=== PATIENT | male | born 1960 | race Caucasian/White ===

== ENCOUNTER 2017-03-31 05:46 | Emergency (ER) | payer OTHER ==
[~2017-03-31] VITALS: Ht 154.9 cm; Wt 79.4 kg
[~2017-03-31 05:46] MED LIST: AMOCLA875 PO; METF500 PO; Naprosyn500 MG PO
[2017-03-31] MEDS ORDERED: LISI5 PO (06:02)
[2017-03-31] MEDS ORDERED: IBUP800 PO (07:33)
[2018-02-13] MEDS ORDERED: CEPH500 PO (12:25)
== END 2017-03-31 08:18 | disposition home or self-care (01) ==
LOC: ER 05:46
DX: S20.212A Contusion of left front wall of thorax, initial encounter (principal); E11.9 Type 2 diabetes mellitus without complications; F17.200 Nicotine dependence, unspecified, uncomplicated; Z79.84 Long term (current) use of oral hypoglycemic drugs; Z79.899 Other long term (current) drug therapy; W19.XXXA Unspecified fall, initial encounter
CPT/HCPCS: 71101; 99283

== ENCOUNTER 2018-03-01 19:46 | Emergency (ER) | payer OTHER ==
[~2018-03-01] VITALS: Ht 162.6 cm; Wt 81.7 kg
[~2018-03-01 19:46] MED LIST changes: +CEPH500 PO; +IBUP800 PO; +LISI5 PO
== END 2018-03-01 20:19 | disposition home or self-care (01) ==
LOC: ER 19:46
DX: M79.604 Pain in right leg (principal); M79.605 Pain in left leg; E11.9 Type 2 diabetes mellitus without complications; F17.210 Nicotine dependence, cigarettes, uncomplicated
CPT/HCPCS: 96372; 99283-25; J1885

== ENCOUNTER 2018-04-04 19:57 | Emergency (ER) | payer OTHER ==
[~2018-04-04] VITALS: Ht 162.6 cm; Wt 77.1 kg
[2018-04-04] MEDS ORDERED: ALBU90OI INH (23:32)
== END 2018-04-04 23:51 | disposition home or self-care (01) ==
LOC: ER 19:57
DX: J40 Bronchitis, not specified as acute or chronic (principal); E11.9 Type 2 diabetes mellitus without complications; F17.210 Nicotine dependence, cigarettes, uncomplicated
CPT/HCPCS: 71046; 94640; 99284-25

== ENCOUNTER 2019-08-01 21:53 | Emergency (ER) | payer OTHER ==
[~2019-08-01] VITALS: Ht 165.1 cm; Wt 72.6 kg
[~2019-08-01 21:53] MED LIST changes: +ALBU90OI INH
[2019-08-01] MEDS ORDERED: Flector1 EACH UD (22:08)
== END 2019-08-01 22:18 | disposition home or self-care (01) ==
LOC: ER 21:53
DX: M54.5 Low back pain (principal); E11.9 Type 2 diabetes mellitus without complications; F17.210 Nicotine dependence, cigarettes, uncomplicated
CPT/HCPCS: 96372; 99283-25; J1885

== ENCOUNTER 2019-08-07 23:54 | Emergency (ER) | payer OTHER ==
[~2019-08-07] VITALS: Ht 165.1 cm; Wt 79.4 kg
[~2019-08-07 23:54] MED LIST changes: +Flector1 EACH UD
== END 2019-08-08 01:55 | disposition home or self-care (01) ==
LOC: ER 23:54
DX: M54.5 Low back pain (principal); F10.10 Alcohol abuse, uncomplicated; E11.9 Type 2 diabetes mellitus without complications; F17.210 Nicotine dependence, cigarettes, uncomplicated
CPT/HCPCS: 96372; 99283; A9270; J1885

== ENCOUNTER 2019-12-15 18:39 | Emergency (ER) | payer OTHER ==
[~2019-12-15] VITALS: Ht 167.6 cm; Wt 74.8 kg
[~2019-12-15 18:39] MED LIST changes: +BASAGLAR K100 UNIT/1 SC; +Prinivil10 MG PO
== END 2019-12-15 20:00 | disposition home or self-care (01) ==
LOC: ER 18:39
DX: R01.1 Cardiac murmur, unspecified (principal); E11.9 Type 2 diabetes mellitus without complications; I10 Essential (primary) hypertension; F17.210 Nicotine dependence, cigarettes, uncomplicated; Z79.4 Long term (current) use of insulin
CPT/HCPCS: 99283

== ENCOUNTER 2022-03-11 16:26 | Emergency (ER) | payer OTHER ==
[~2022-03-11] VITALS: Ht 162.6 cm; Wt 67.1 kg
[~2022-03-11 16:26] MED LIST changes: +Neurontin 100100 MG PO
[2022-03-11 23:13] LABS: Influenza A, PCR NEGATIVE (NEGATIVE); Influenza B, PCR NEGATIVE (NEGATIVE); Resp Syncytial Virus, PCR NEGATIVE (NEGATIVE); SARS-Cov-2 (COVID-19) PCR, MMC NEGATIVE (NEGATIVE)
[2022-03-11 23:25] LABS: BASOPHILS ABSOLUTE AUTO 0.06 K/mm3 (0.00-0.23); BASOPHILS PERCENT AUTO 1 % (0-2); EOSINOPHILS ABSOLUTE AUTO 0.16 K/mm3 (0.00-0.68); EOSINOPHILS PERCENT AUTO 2 % (0-6); Hematocrit 39.4 % (37.0-53.0); Hemoglobin 13.1 g/dL (13.5-17.5); IMMATURE GRAN ABSOLUTE AUTO 0.03 K/mm3 (0.00-0.10); IMMATURE GRAN PERCENT AUTO 0 % (0-1); LYMPHOCYTES ABSOLUTE AUTO 1.62 K/mm3 (0.84-5.20); LYMPHOCYTES PERCENT AUTO 17 % (21-46); MONOCYTES ABSOLUTE AUTO 0.55 K/mm3 (0.16-1.47); MONOCYTES PERCENT AUTO 6 % (4-13); Mean Corpuscular HGB 31.6 pg (26.0-34.0); Mean Corpuscular HGB Conc 33.2 g/dL (31.5-36.5); Mean Corpuscular Volume 95 fL (80-100); Mean Platelet Volume 10.6 fL (9.1-12.4); NEUTROPHILS PERCENT AUTO 75 % (41-73); Platelet Count 325 K/mm3 (150-400); RDW Coefficient Variation 12.4 % (11.7-14.2); RDW Standard Deviation 42.9 fL (35.1-46.3); Red Blood Cell Count 4.15 M/mm3 (4.30-5.90); White Blood Cell Count 9.52 K/mm3 (4.00-11.30)
[2022-03-11 23:50] LABS: Albumin, Blood 3.4 g/dL (3.4-5.0); Albumin/Globulin Ratio 0.8 (0.8-1.8); Bilirubin, Direct 0.1 mg/dL (0.0-0.3); Bilirubin, Indirect 0.4 mg/dL (0.1-0.7); Bilirubin, Total 0.5 mg/dL (0.1-1.0); Bun/Creatinine Ratio 38.6 (12.0-20.0); Calcium, Blood 9.3 mg/dL (8.5-10.1); Creatinine, Blood 0.6 mg/dL (0.60-1.20); Globulin, Blood 4.3 g/dL (2.2-4.0); Magnesium, Blood 1.6 mg/dL (1.6-2.4); Potassium, Blood 4.6 mmol/L (3.5-5.5); Total Protein, Blood 7.7 g/dL (6.4-8.2)
[2022-03-12 01:08] LABS: Source, Urine Clean Catch
[2022-03-12 01:09] LABS: Bilirubin, Urine Neg (Neg); Blood, Urine 1+ (Neg); Glucose Qualitative, Urine 3+ (Neg); Ketones, Urine 3+ (Neg); Leukocyte Esterase, Urine 1+ (Neg); Nitrite, Urine Neg (Neg); Protein, Urine 1+ (Neg); Specific Gravity, Urine 1.015 (1.003-1.022); Urobilinogen, Urine 2+ (Normal)
[2022-03-12 01:45] LABS: Color, Urine Yellow (P-Yellow)
[2022-03-12 01:47] LABS: Appearance, Urine Clear (Clear); Bacteria Few /hpf; Red Blood Cells, Urine 0-2 /hpf (0-2); Squamous Epithelial Cells Rare /hpf (Few); White Blood Cells, Urine 0-2 /hpf (0-5)
[2022-03-12] MEDS ORDERED: ONDA4ODT MM (02:19)
[2022-03-12] MEDS ORDERED: MIRALAX17 GM PO (02:19)
== END 2022-03-12 02:32 | disposition home or self-care (01) ==
LOC: ER 16:26
PROVIDERS: Student in an Organized Health Care Education/Training Program
DX: R11.2 Nausea with vomiting, unspecified (principal); E86.0 Dehydration; K59.00 Constipation, unspecified; I10 Essential (primary) hypertension; E11.9 Type 2 diabetes mellitus without complications; F17.210 Nicotine dependence, cigarettes, uncomplicated; Z79.4 Long term (current) use of insulin; Z79.899 Other long term (current) drug therapy; Z20.822 Contact with and (suspected) exposure to COVID-19
CPT/HCPCS: 0241U; 36415; 74177; 80048; 80076; 81001; 83690; 83735; 85025; 93005; 93010; J2765; J7030; Q9967

== ENCOUNTER 2022-05-10 17:18 | Inpatient (IN) | payer OTHER ==
[~2022-05-10] VITALS: Ht 162.6 cm; Wt 59.0 kg
[~2022-05-10 17:18] MED LIST changes: +MIRALAX17 GM PO; +ONDA4ODT MM
[2022-05-10 17:48] LABS: BASOPHILS ABSOLUTE AUTO 0.07 K/mm3 (0.00-0.23); BASOPHILS PERCENT AUTO 1 % (0-2); EOSINOPHILS ABSOLUTE AUTO 0.11 K/mm3 (0.00-0.68); EOSINOPHILS PERCENT AUTO 1 % (0-6); Hematocrit 31.7 % (37.0-53.0); Hemoglobin 10.8 g/dL (13.5-17.5); IMMATURE GRAN ABSOLUTE AUTO 0.04 K/mm3 (0.00-0.10); IMMATURE GRAN PERCENT AUTO 0 % (0-1); LYMPHOCYTES ABSOLUTE AUTO 1.15 K/mm3 (0.84-5.20); LYMPHOCYTES PERCENT AUTO 11 % (21-46); MONOCYTES ABSOLUTE AUTO 0.37 K/mm3 (0.16-1.47); MONOCYTES PERCENT AUTO 3 % (4-13); Mean Corpuscular HGB 29.8 pg (26.0-34.0); Mean Corpuscular HGB Conc 34.1 g/dL (31.5-36.5); Mean Corpuscular Volume 87 fL (80-100); Mean Platelet Volume 9.7 fL (9.1-12.4); NEUTROPHILS ABSOLUTE AUTO 9.16 K/mm3 (1.96-9.15); NEUTROPHILS PERCENT AUTO 84 % (41-73); Platelet Count 501 K/mm3 (150-400); RDW Coefficient Variation 12.5 % (11.7-14.2); RDW Standard Deviation 40.1 fL (35.1-46.3); Red Blood Cell Count 3.63 M/mm3 (4.30-5.90)
[2022-05-10 18:10] LABS: Albumin, Blood 2.9 g/dL (3.4-5.0); Albumin/Globulin Ratio 0.7 (0.8-1.8); Bilirubin, Total 0.4 mg/dL (0.1-1.0); Calcium, Blood 8.8 mg/dL (8.5-10.1); Creatinine, Blood 1.13 mg/dL (0.60-1.20); Globulin, Blood 4.1 g/dL (2.2-4.0); Potassium, Blood 4.8 mmol/L (3.5-5.5)
[2022-05-10] MEDS ORDERED: ATORVASTATIN CA20 MG PO (18:38)
[2022-05-10] MEDS ORDERED: BASAGLAR K100 UNIT/3 SC (18:39)
--- NOTE | 2022-05-10 23:40 | NUR ---
ADMIT NOTE PT ARRIVED FROM ER VIA STRETCHER. HE IS ALERT AND ORIENTED X4. HE IS NOTABLY UNKEMPT W/SMALL AMOUNT OF DRIED STOOL IN UNDERWEAR AND ON HIS BOTTOM WELL DIRT BETWEEN HIS TOES. HE IS HYPOTENSIVE, SR ON THE SOLVENT MIXER. AFEBRILE. HE HAS A NOTABLE HEART MURMUR. LUNG SOUNDS ARE DIMINISHED AND COURSE, HE IS A CURRENT SMOKER. DENIES ETOH/DRUG USE. HE IS IN NO ACUTE DISTRESS AT THIS TIME, AND HAS NO COMPLAINTS OF PAIN.
[2022-05-11 00:12] LABS: Hemoglobin 9.4 g/dL (13.5-17.5)
[2022-05-11 00:25] LABS: Source, Urine Clean Catch
[2022-05-11 00:32] LABS: Bilirubin, Urine Neg (Neg); Blood, Urine Neg (Neg); Glucose Qualitative, Urine Neg (Neg); Ketones, Urine 1+ (Neg); Leukocyte Esterase, Urine Neg (Neg); Nitrite, Urine Neg (Neg); Protein, Urine 1+ (Neg); Urobilinogen, Urine NORM (Normal)
[2022-05-11 00:33] LABS: Appearance, Urine Clear (Clear); Color, Urine Yellow (P-Yellow)
[2022-05-11 00:37] LABS: Free Thyroxine 1.35 ng/dL (0.70-1.60); Thyroid Stimulating Hormone 1.16 uIU/mL (0.360-4.800)
--- NOTE | 2022-05-11 00:45 | NUR ---
PT HYPOTENSIVE W/MAP <65. NOTIFIED DR HENDRICKSON. ORDERS GIVEN FOR LEVOPHED INFUSION.
[2022-05-11 00:59] LABS: U Amphetamine Screen Not Detected; U Barbituate Screen Not Detected; U Benzodiazapine Screen Not Detected; U Buprenorphine Screen Not Detected; U Cannabinoids Screen Not Detected; U Cocaine Screen Not Detected; U Methadone Screen Not Detected; U Methamphetamine Screen Not Detected; U Opiates Screen Not Detected; U Oxycodone Screen Not Detected; U Phencyclidine Screen Not Detected; U Propoxyphene Screen Not Detected
--- NOTE | 2022-05-11 05:43 | NUR ---
SHIFT SUMMERY PT REMAINS ALERT AND ORIENTED X 4, AFEBRILE. SR ON THE HOSE SEAMER W/LEVOPHED INFUSING FOR HYPOTENSION. CVL PLACED OVERNIGHT IN LEFT IJ. PT HAS VOIDED IN THE URININAL. OTHER THAN HIS HYPOTENSION, HE HAS BEEN ASYMPTOMATIC ASIDE FROM GENERALIZED WEAKNESS. HE IS ON ROOM AIR W/OXYGEN SAT 98% AT THIS TIME.
[2022-05-11 05:50] LABS: BASOPHILS ABSOLUTE AUTO 0.08 K/mm3 (0.00-0.23); BASOPHILS PERCENT AUTO 1 % (0-2); EOSINOPHILS ABSOLUTE AUTO 0.21 K/mm3 (0.00-0.68); EOSINOPHILS PERCENT AUTO 2 % (0-6); Hematocrit 28.5 % (37.0-53.0); Hemoglobin 9.6 g/dL (13.5-17.5); IMMATURE GRAN ABSOLUTE AUTO 0.06 K/mm3 (0.00-0.10); IMMATURE GRAN PERCENT AUTO 0 % (0-1); LYMPHOCYTES ABSOLUTE AUTO 1.64 K/mm3 (0.84-5.20); LYMPHOCYTES PERCENT AUTO 12 % (21-46); MONOCYTES ABSOLUTE AUTO 0.69 K/mm3 (0.16-1.47); MONOCYTES PERCENT AUTO 5 % (4-13); Mean Corpuscular HGB 29.3 pg (26.0-34.0); Mean Corpuscular HGB Conc 33.7 g/dL (31.5-36.5); Mean Corpuscular Volume 87 fL (80-100); Mean Platelet Volume 9.5 fL (9.1-12.4); NEUTROPHILS ABSOLUTE AUTO 10.82 K/mm3 (1.96-9.15); NEUTROPHILS PERCENT AUTO 80 % (41-73); Platelet Count 525 K/mm3 (150-400); RDW Coefficient Variation 12.6 % (11.7-14.2); RDW Standard Deviation 40.3 fL (35.1-46.3); Red Blood Cell Count 3.28 M/mm3 (4.30-5.90)
[2022-05-11 06:12] LABS: Albumin, Blood 2.6 g/dL (3.4-5.0); Albumin/Globulin Ratio 0.7 (0.8-1.8); Bilirubin, Total 0.5 mg/dL (0.1-1.0); Bun/Creatinine Ratio 57.5 (12.0-20.0); Calcium, Blood 8.4 mg/dL (8.5-10.1); Creatinine, Blood 0.78 mg/dL (0.60-1.20); Globulin, Blood 3.9 g/dL (2.2-4.0); Potassium, Blood 4.2 mmol/L (3.5-5.5); Total Protein, Blood 6.5 g/dL (6.4-8.2)
[2022-05-11] MEDS ORDERED: ATOR40TA PO (06:13)
[2022-05-11] MEDS ORDERED: NAPR500 PO (06:14)
[2022-05-11] MEDS ORDERED: LISI5 PO (06:15)
[2022-05-11] MEDS ORDERED: METF500 PO (06:15)
--- NOTE | 2022-05-11 07:30 | NUR ---
Received report from Ifeoma KIDD. Patient is awake and oriented to self, speech garbled but understandable most of the time. He is able to communicate his needs. He has bilateral 20ga IV in Lower FA's, both flushed and SL'd. Uses urinal without assist. Bilateral SCD's in place. Patient arrived very unkept and un cleaned. He has dry scaley skin on top of head. Patient has RIJ dressing intact and is infusing levophed at 10mgc/min and NS at 75 ml/hr.
--- NOTE | 2022-05-11 09:30 | NUR ---
Patient had complete bath and linen change. Echo is finishing up. RIJ dressing changed. Levophed continues at 10 mcg/min and NS at 75ml/hr. Patient currently resting. He tolerated PO meds with sips of water.
[2022-05-11 12:24] LABS: Hemoglobin 9.6 g/dL (13.5-17.5)
--- NOTE | 2022-05-11 12:26 | NUR ---
Patient has been restiong off and on and has been saying he wants to see Dr so he can go home. I hhave explained why he in the hospital and then he is ok with it and then shortly after request same thing. Levophed has been titared down to 5 mcg/min and systolic remains >100 and MAP >65. VSS. No other significant changes.
--- NOTE | 2022-05-11 15:28 | NUR ---
Patient has alayna resting off and on. He remains on RA and sats >90%. Hr remains on Levophed at 5 mcg/min and systolic >100 and MAPS >65. He is alert and able to communicate his needs. He is very anxious to see GI as to find out about a diet and possibly go home . He is not really clear when orienting him about medication he is on and understanding that he needs to stay in hospital. VELEZ but weak, can turn self in bed mostly.
[2022-05-11 17:42] LABS: Hematocrit 26.9 % (37.0-53.0); Hemoglobin 9.3 g/dL (13.5-17.5)
--- NOTE | 2022-05-11 18:08 | NUR ---
Patient was up with SBA to [facility] with small brown stool. He got up to chair after and sat in chair for an hour. He called and ambulated to bed with SBA. He has been independent in bed and calls apropriately. He remains on Ra and sats >90%. he used urinal independently and has 1500 mls out. Bilateral lower FA 20ga IV's both flushed and SL'd. RIJ infusing NS at 75 ml/hr and Levophed just reduced to 4mcg/min and syatolis >100 and MAP >65. He is depressed about not going home and does not understand delay in GI consult. Needs to be redirect about plan in hospital several times. ROSIE but weak
--- NOTE | 2022-05-11 19:15 | NUR ---
ASSUMPTION OF CARE PT IS ALERT AND ORIENTED X4, STATES HE WANTS TO LEAVE AND GO HOME. EDUCATED PT ON HIS NEED FOR LEVOPHED FOR HYPOTENSION AND DISCUSSED HIM REMAINING HERE TO CONTINUE TREATMENTS. PT STATED THAT HE WOULD STAY TONIGHT BUT WOULD DISCUSS WITH THE DR TOMORROW. HE IS SR ON THE PRESSURE TANK OPERATOR, BP W/ MAP >65 WITH LEVOPHED INFUSING TO MAINTAIN. PT IS ON ROOM AIR W/ OXYGEN SAT 100%. NO S/S OF ACUTE DISTRESS AT THIS TIME.
[2022-05-12 04:05] LABS: BASOPHILS ABSOLUTE AUTO 0.07 K/mm3 (0.00-0.23); BASOPHILS PERCENT AUTO 1 % (0-2); EOSINOPHILS PERCENT AUTO 3 % (0-6); Hematocrit 26.8 % (37.0-53.0); Hemoglobin 9.1 g/dL (13.5-17.5); IMMATURE GRAN ABSOLUTE AUTO 0.01 K/mm3 (0.00-0.10); IMMATURE GRAN PERCENT AUTO 0 % (0-1); LYMPHOCYTES ABSOLUTE AUTO 1.57 K/mm3 (0.84-5.20); LYMPHOCYTES PERCENT AUTO 21 % (21-46); MONOCYTES ABSOLUTE AUTO 0.44 K/mm3 (0.16-1.47); MONOCYTES PERCENT AUTO 6 % (4-13); Mean Corpuscular HGB 29.5 pg (26.0-34.0); Mean Corpuscular Volume 87 fL (80-100); Mean Platelet Volume 9.1 fL (9.1-12.4); NEUTROPHILS ABSOLUTE AUTO 5.12 K/mm3 (1.96-9.15); NEUTROPHILS PERCENT AUTO 69 % (41-73); Platelet Count 369 K/mm3 (150-400); RDW Coefficient Variation 12.6 % (11.7-14.2); RDW Standard Deviation 39.9 fL (35.1-46.3); Red Blood Cell Count 3.08 M/mm3 (4.30-5.90); White Blood Cell Count 7.41 K/mm3 (4.00-11.30)
[2022-05-12 04:24] LABS: Bun/Creatinine Ratio 23.5 (12.0-20.0); Calcium, Blood 8.8 mg/dL (8.5-10.1); Creatinine, Blood 0.51 mg/dL (0.60-1.20); Potassium, Blood 3.8 mmol/L (3.5-5.5)
--- NOTE | 2022-05-12 08:00 | NUR ---
PT IS A&O X4. PT APPEARS TO HAVE DEVELOPMENTAL DELAY AT BASELINE. PT ABLE TO MAKE HIS NEEDS KNOWN. PT DENIES PAIN OR SOB. ECG SHOWS SR. MAP TRENDING 70'S-OFF OF LEVOPHED. NO NOTED EDEMA. DP/PT PULSES PALPABLE. MURMUR AUSCULTATED. LUNGS CLEAR. SATS>90% NO NOTED COUGH. PT DENIES GI DISTRESS. ASSISTED WITH ASHLIE CARE AND NOTED SMALL SMEAR OF BROWN STOOL. PT DENIES NEED TO GET UP TO THE BSC FOR A BM AT THIS TIME. PT USES URINAL TO VOID. VOIDS SMALL AMOUNTS OF CLEAR, YELLOW URINE WITHOUT COMPLAINT OF DYSURIA OR URGENCY. PT SKIN IS PALE AND FRAIL PT RIGHT HAND AND FINGERS ARE STAINED FROM NICOTINE. ON THE TOP OF THE RIGHT FOOT HAS PETECHIAE AND THE TOES ARE DISCOLORED, BUT NO NOTED OPEN WOUNDS. PT ASSISTED WITH AM CARE AND THEN GIVEN BREAKFAST TRAY AND ASSISTED TO SIT AT THE BEDSIDE. CALL LIGHT WITHIN REACH.
--- NOTE | 2022-05-12 11:15 | NUR ---
PT ASSISTED BACK TO BED. ECG CONTINUES SR WITH RATE 70'S. MAP STILL TRENDING IN 70'S OFF OF LEVOPHED DRIP. NO NOTED SOB. PT MADE NPO EGD SCHEDULED FOR 1600. DR. RODRIGUEZ IN TO SEE PT-FULL UPDATE GIVEN.
--- NOTE | 2022-05-12 14:33 | NUR ---
PT TO DAY SURGERY FOR EGC VIA GURNEY. PT IS PCU STATUS.
--- NOTE | 2022-05-12 14:43 | NUR ---
History, Chart, Medications and Allergies reviewed before start of procedure. LS WITH EXP WHEEZES NOTED T/O. DENEIS SOB OR OTHER C/O PT REPORTS SMOKES ABOUT 2-3 PACKS A DAY. PT BIOX 100% ON RA. Patient confirms NPO status and agrees with scheduled surgery. Pre-Op teaching done. Pt verbalizes understanding.
--- NOTE | 2022-05-12 15:45 | NUR ---
PT RETURNED FROM EGD. HE IS A&OX4. PT ABLE TO TRANSFER FROM [facility] TO THE BED WITHOUT DIFFICULTY. VSS MAP 75. SPO2 100% ON RA. NO NOTED SOB. PT DENIES GI DISTRESS. DR. RUELAS UPDATE. [facility] REMOVED-PT TOLERATED WELL. ANTICIPATE DISCHARGE TO HOME LATER TODAY. CARE MANAGEMENT HAS ARRANGED FOR TRANSPORTATION @ 1800.
[2022-05-12] MEDS ORDERED: PANT40 (17:17)
--- NOTE | 2022-05-12 17:34 | NUR ---
PT GIVEN DISCHARGE INSTRUCTIONS. PT VERBALIZES THAT HE WILL NO LONGER BE TAKING IBUPROFEN OR OTHER NSAIDS. RX FOR PROTONIX CALLED TO [facility] PER PT REQUEST. PT DISCHARGED TO HOME, OUT VIA WHEELCHAIR. PT HAD BELONGINGS AND DISCHARGE INSTRUCTIONS ON HAND.
== END 2022-05-12 17:35 | disposition home or self-care (01) | DRG 314 ==
LOC: ER 17:18 → ICUW 21:49 → ICUE 21:49
PROVIDERS: Emergency Medicine; Internal Medicine; Student in an Organized Health Care Education/Training Program; ADMIT Internal Medicine
PROC: 3E033XZ Introduction of Vasopressor into Peripheral Vein, Percutaneous Approach (ICD-10-PCS; 2022-05-11)
PROC: 0DB68ZX Excision of Stomach, Via Natural or Artificial Opening Endoscopic, Diagnostic (ICD-10-PCS; 2022-05-12)
PROC: 0DJ08ZZ Inspection of Upper Intestinal Tract, Via Natural or Artificial Opening Endoscopic (ICD-10-PCS; principal; 2022-05-12 16:00)
DX: I95.9 Hypotension, unspecified (principal); K20.91 Esophagitis, unspecified with bleeding; K29.71 Gastritis, unspecified, with bleeding; K25.4 Chronic or unspecified gastric ulcer with hemorrhage; D64.9 Anemia, unspecified; E11.9 Type 2 diabetes mellitus without complications; R01.1 Cardiac murmur, unspecified; K44.9 Diaphragmatic hernia without obstruction or gangrene; I10 Essential (primary) hypertension; F17.210 Nicotine dependence, cigarettes, uncomplicated; E86.9 Volume depletion, unspecified; E78.5 Hyperlipidemia, unspecified; R62.50 Unspecified lack of expected normal physiological development in childhood; K59.00 Constipation, unspecified; Z79.899 Other long term (current) drug therapy; Z79.84 Long term (current) use of oral hypoglycemic drugs; Z79.811 Long term (current) use of aromatase inhibitors; Z79.4 Long term (current) use of insulin; Z90.49 Acquired absence of other specified parts of digestive tract; Z98.890 Other specified postprocedural states; Z79.02 Long term (current) use of antithrombotics/antiplatelets
CPT/HCPCS: 36415; 36556; 71045; 74177; 80048; 80053; 80400; 82272; 82533; 82947; 83605; 83690; 83880; 84439; 84443; 84484; 85014; 85018; 85025; 85379; 86850; 86900; 86901; 86920; 88305; 88342; 93005; 93010; 93306; 96361; 96374-59; 96375; 96376; 99285-25; A9270; C1751; C9113; G0378; J0834; J1815; J2704; J7030; J7060; J7120; Q9967

== ENCOUNTER 2022-05-19 19:49 | Emergency (ER) | payer OTHER ==
[~2022-05-19] VITALS: Ht 162.6 cm; Wt 68.0 kg
[~2022-05-19 19:49] MED LIST changes: +ATOR40TA PO; +ATORVASTATIN CA20 MG PO; +BASAGLAR K100 UNIT/3 SC; +NAPR500 PO; +PANT40
[2022-05-19 20:10] LABS: BASOPHILS ABSOLUTE AUTO 0.06 K/mm3 (0.00-0.23); BASOPHILS PERCENT AUTO 1 % (0-2); EOSINOPHILS PERCENT AUTO 2 % (0-6); Hematocrit 27.4 % (37.0-53.0); IMMATURE GRAN ABSOLUTE AUTO 0.02 K/mm3 (0.00-0.10); IMMATURE GRAN PERCENT AUTO 0 % (0-1); LYMPHOCYTES ABSOLUTE AUTO 1.76 K/mm3 (0.84-5.20); LYMPHOCYTES PERCENT AUTO 21 % (21-46); MONOCYTES ABSOLUTE AUTO 0.68 K/mm3 (0.16-1.47); MONOCYTES PERCENT AUTO 8 % (4-13); Mean Corpuscular HGB 29.4 pg (26.0-34.0); Mean Corpuscular HGB Conc 32.8 g/dL (31.5-36.5); Mean Corpuscular Volume 90 fL (80-100); Mean Platelet Volume 9.5 fL (9.1-12.4); NEUTROPHILS ABSOLUTE AUTO 5.58 K/mm3 (1.96-9.15); NEUTROPHILS PERCENT AUTO 67 % (41-73); Platelet Count 341 K/mm3 (150-400); RDW Coefficient Variation 13.4 % (11.7-14.2); RDW Standard Deviation 43.6 fL (35.1-46.3); Red Blood Cell Count 3.06 M/mm3 (4.30-5.90)
[2022-05-19 20:35] LABS: Albumin, Blood 2.8 g/dL (3.4-5.0); Albumin/Globulin Ratio 0.7 (0.8-1.8); Bilirubin, Total 0.5 mg/dL (0.1-1.0); Bun/Creatinine Ratio 28.1 (12.0-20.0); Calcium, Blood 8.9 mg/dL (8.5-10.1); Creatinine, Blood 0.64 mg/dL (0.60-1.20); Globulin, Blood 3.9 g/dL (2.2-4.0); Potassium, Blood 4.2 mmol/L (3.5-5.5); Total Protein, Blood 6.7 g/dL (6.4-8.2)
== END 2022-05-20 01:25 | disposition home or self-care (01) ==
LOC: ER 19:49
PROVIDERS: Physician Assistant
DX: R51.9 Headache, unspecified (principal); R42 Dizziness and giddiness; R47.81 Slurred speech; I10 Essential (primary) hypertension; E11.9 Type 2 diabetes mellitus without complications; F17.210 Nicotine dependence, cigarettes, uncomplicated; Z79.899 Other long term (current) drug therapy; Z79.84 Long term (current) use of oral hypoglycemic drugs
CPT/HCPCS: 70450; 80053; 85025; 96361; 96374; 96375; 99284-25; J1100; J1200; J2765; J7030

== ENCOUNTER 2023-02-24 11:23 | Emergency (ER) | payer OTHER ==
[~2023-02-24] VITALS: Ht 162.6 cm; Wt 56.2 kg
[2023-02-24 12:30] VITALS: BP 130/80
[2023-02-24 13:30] LABS: Calcium, Ionized (POC) 1.26 mmol/L (1.10-1.46); Chloride (POC) 95 mmol/L (98-108); Creatinine (POC) 0.6 mg/dL (0.8-1.3); Glucose (ISTAT POC) 195 mg/dL (70-99); Hemoglobin (POC) 13.6 g/dL (13.5-17.5); Potassium (POC) 4.5 mmol/L (3.5-5.5); Sodium (POC) 135 mmol/L (135-148); Total CO2 (POC) 33 mmol/L (21-32)
== END 2023-02-24 15:25 | disposition home or self-care (01) ==
LOC: ER 11:23
DX: R51.9 Headache, unspecified (principal); F17.210 Nicotine dependence, cigarettes, uncomplicated; E11.9 Type 2 diabetes mellitus without complications; I10 Essential (primary) hypertension; Z79.84 Long term (current) use of oral hypoglycemic drugs; Z79.4 Long term (current) use of insulin; Z79.899 Other long term (current) drug therapy
CPT/HCPCS: 80047; 85014; 99284; A9270

== ENCOUNTER 2023-03-07 14:47 | Emergency (ER) | payer OTHER ==
[~2023-03-07] VITALS: Ht 162.6 cm; Wt 81.7 kg
[2023-03-07 15:06] VITALS: BP 120/78
[2023-03-07 16:09] LABS: Influenza A, PCR NEGATIVE (NEGATIVE); Influenza B, PCR NEGATIVE (NEGATIVE); Resp Syncytial Virus, PCR NEGATIVE (NEGATIVE); SARS-Cov-2 (COVID-19) PCR, MMC NEGATIVE (NEGATIVE)
== END 2023-03-07 16:31 | disposition home or self-care (01) ==
LOC: ER 14:47
PROVIDERS: Physician Assistant
DX: J06.9 Acute upper respiratory infection, unspecified (principal); Z20.822 Contact with and (suspected) exposure to COVID-19; Z79.899 Other long term (current) drug therapy; Z79.84 Long term (current) use of oral hypoglycemic drugs; Z79.4 Long term (current) use of insulin; E11.9 Type 2 diabetes mellitus without complications; I10 Essential (primary) hypertension; F17.210 Nicotine dependence, cigarettes, uncomplicated
CPT/HCPCS: 0241U; 99283; A9270

== ENCOUNTER 2023-04-30 07:00 | Day surgery (SDC) | payer OTHER ==
[~2023-04-30] VITALS: Ht 162.6 cm; Wt 56.0 kg
[2023-04-30] VITALS (11 sets, daily range): BP systolic 90–126; BP diastolic 56–96
[~2023-04-30 07:00] MED LIST changes: +ASPI81CH PO; -PANT40; +PANT40 PO; +SEMGLEE (Y100 UNIT/2 SQ
[2023-04-30] MEDS ORDERED: NS 1,000 ML IV ONE ×2 (07:17→08:06)
[2023-04-30] MEDS ORDERED: Heparin Sodium 1000 Units/ML 10ML MDV ONE ×2 (07:17→08:06)
[2023-04-30] MEDS ORDERED: NS 500 ML IV ONE (07:17)
[2023-04-30] MEDS ORDERED: Nitroglycerin 2 MG/20 ML BTL ONE (07:18)
[2023-04-30] MEDS ORDERED: Midazolam HCl 1MG / ML 2ML Vial ONE (08:06)
[2023-04-30] MEDS ORDERED: FentaNYL Citrate 50 MCG/ML 2 ML Injection ONE (08:06)
--- NOTE | 2023-04-30 09:55 | NUR ---
ASSUMED CARE OF PT POST PROCEDURE. PT AWAKE AND CONVERSING APPROPRIATELY; DENIES PAIN POST PROCEDURE. MONITOR SR 70'S, B/P 124/75, SPO2 100% RA, AFEBRILE. L GROIN SITE NO SWELLING/HEMATOMA, TEGADERM DRSG INTACT; ANGIO SEAL DEPLOYED, LLE: DP DOP, PT 1+, RLE: DP 2+, PT 1+. PT TAKING SIPS OF COFFEE WITHOUT ISSUE.
--- NOTE | 2023-04-30 11:05 | NUR ---
PT'S HOB ELEVATED, SITE UNCHANGED; TAKING BREAKFAST WITHOUT ISSUE.
--- NOTE | 2023-04-30 12:45 | NUR ---
PT AMB TO BATHROOM, GAIT STEADY; SITE UNCHANGED WITH ACTIVITY.
--- NOTE | 2023-04-30 13:35 | NUR ---
PT DRESSED SELF WITHOUT ISSUE, SITE UNCHANGED; IV REMOVED-CANNULA INTACT.
--- NOTE | 2023-04-30 13:41 | NUR ---
PT RECEIVED DISCHARGE INSTRUCTIONS, MED LIST AND AFTER CARE INSTRUCTIONS; VERBALIZED GOOD UNDERSTANDING. PT RE[facility]. PT TO ENTRANCE VIA W/C, CONDITION STABLE.
== END 2023-04-30 13:41 | disposition home or self-care (01) ==
LOC: MHTC 07:00
DX: E11.51 Type 2 diabetes mellitus with diabetic peripheral angiopathy without gangrene (principal); I70.223 Atherosclerosis of native arteries of extremities with rest pain, bilateral legs; I10 Essential (primary) hypertension; E78.5 Hyperlipidemia, unspecified; J44.9 Chronic obstructive pulmonary disease, unspecified; K21.9 Gastro-esophageal reflux disease without esophagitis; Z79.82 Long term (current) use of aspirin; Z79.4 Long term (current) use of insulin; Z79.899 Other long term (current) drug therapy
CPT/HCPCS: 76937; 99152; 99153; C1725; C1760; C1769; C1887; C1894; C2623; J1644; J2250; J3010; J7030; J7050; Q9967

== ENCOUNTER 2023-05-30 00:34 | Inpatient (IN) | payer OTHER ==
[~2023-05-30] VITALS: Ht 152.4 cm; Wt 55.1 kg
[2023-05-30] VITALS (74 sets, daily range): BP systolic 53–137; BP diastolic 41–93
[~2023-05-30 00:34] MED LIST changes: +FERSU300 PO; +Nicoderm Cq1 EAC1 TOP
[2023-05-30 00:59] LABS: Base Excess Venous 1.3 mmol/L; Bicarbonate Venous 24.3 mmol/L (24.0-30.0); PCO2 Venous 53.6 mmHg (38-42); pH Blood Venous 7.32 (7.34-7.37)
[2023-05-30 00:59] LABS: BASOPHILS ABSOLUTE AUTO 0.05 K/mm3 (0.00-0.23); BASOPHILS PERCENT AUTO 0 % (0-2); EOSINOPHILS ABSOLUTE AUTO 0.09 K/mm3 (0.00-0.68); EOSINOPHILS PERCENT AUTO 1 % (0-6); Hemoglobin 12.4 g/dL (13.5-17.5); IMMATURE GRAN ABSOLUTE AUTO 0.04 K/mm3 (0.00-0.10); IMMATURE GRAN PERCENT AUTO 0 % (0-1); LYMPHOCYTES ABSOLUTE AUTO 1.31 K/mm3 (0.84-5.20); LYMPHOCYTES PERCENT AUTO 10 % (21-46); MONOCYTES ABSOLUTE AUTO 0.63 K/mm3 (0.16-1.47); MONOCYTES PERCENT AUTO 5 % (4-13); Mean Corpuscular HGB Conc 32.6 g/dL (31.5-36.5); Mean Corpuscular Volume 92 fL (80-100); Mean Platelet Volume 9.5 fL (9.1-12.4); NEUTROPHILS ABSOLUTE AUTO 10.47 K/mm3 (1.96-9.15); NEUTROPHILS PERCENT AUTO 83 % (41-73); Platelet Count 333 K/mm3 (150-400); RDW Coefficient Variation 14.5 % (11.7-14.2); RDW Standard Deviation 48.3 fL (35.1-46.3); Red Blood Cell Count 4.14 M/mm3 (4.30-5.90); White Blood Cell Count 12.59 K/mm3 (4.00-11.30)
[2023-05-30] MEDS ORDERED: Albuterol 2.5 MG/3 ML VIAL INH SCH (01:00)
[2023-05-30] MEDS ORDERED: Acetaminophen 500 MG Tab PO ONE (01:00)
[2023-05-30] MEDS ORDERED: MethylPREDNISolone Sod Succ 125 MG Vial IV ONE (01:00)
[2023-05-30 01:18] LABS: Albumin, Blood 3.4 g/dL (3.4-5.0); Albumin/Globulin Ratio 0.8 (0.8-1.8); Bilirubin, Total 0.2 mg/dL (0.1-1.0); Bun/Creatinine Ratio 35.8 (12.0-20.0); Calcium, Blood 9.5 mg/dL (8.5-10.1); Creatinine, Blood 0.92 mg/dL (0.60-1.20); Globulin, Blood 4.3 g/dL (2.2-4.0); Potassium, Blood 4.7 mmol/L (3.5-5.5); Total Protein, Blood 7.7 g/dL (6.4-8.2)
[2023-05-30 01:59] LABS: Source, Urine Clean Catch
[2023-05-30 02:02] LABS: Bilirubin, Urine Neg (Neg); Blood, Urine 1+ (Neg); Glucose Qualitative, Urine 4+ (Neg); Ketones, Urine Neg (Neg); Leukocyte Esterase, Urine Neg (Neg); Nitrite, Urine Neg (Neg); Protein, Urine 2+ (Neg); Specific Gravity, Urine 1.025 (1.003-1.022); Urobilinogen, Urine 1+ (Normal)
[2023-05-30 02:16] LABS: Appearance, Urine Hazy (Clear); Color, Urine Yellow (P-Yellow)
[2023-05-30 02:17] LABS: Amorphous Light (0-Heavy); Bacteria Rare /hpf; Red Blood Cells, Urine 0-2 /hpf (0-2); Squamous Epithelial Cells Few /hpf (Few); White Blood Cells, Urine 0-2 /hpf (0-5)
[2023-05-30 02:28] LABS: Anti-Xa UFH, PHA Monitoring <0.10 IU/mL; International Normalized Ratio 0.99; Prothrombin Time Results 10.4 Sec (9.7-11.5)
[2023-05-30] MEDS ORDERED: FLU VACC QS2023-24(6MOS UP)/PF 60 MCG/0.5 ML SYRINGE IM ONE (02:30)
[2023-05-30] MEDS ORDERED: Aspirin 325 MG Tab PO ONE (02:30)
[2023-05-30] MEDS ORDERED: Insulin Glargine-Yfgn 100 Unit/mL 3 ML SYR SC ONE (02:32)
[2023-05-30] MEDS ORDERED: Heparin Sodium,Porcine/0.5 NS 500 ML IV SCH (02:35)
[2023-05-30] MEDS ORDERED: Midodrine 5 MG Tab PO ONE (03:00)
[2023-05-30] MEDS ORDERED: NS 1,000 ML IV ONE (03:07)
[2023-05-30] MEDS ORDERED: NS 500 ML IV ONE (03:10)
[2023-05-30] MEDS ORDERED: NS 500 ML IV SCH (03:10)
[2023-05-30] MEDS ORDERED: NS 1,000 ML IV SCH (05:05)
[2023-05-30] MEDS ORDERED: Insulin Regular 100 UNIT/ML 10ML Vial SC SCH (06:00)
[2023-05-30] MEDS ORDERED: Pantoprazole Sodium 40 MG Injection IV SCH ×2 (06:00→19:00)
[2023-05-30] MEDS ORDERED: Aspirin 81 MG Chew PO SCH (09:00)
[2023-05-30] MEDS ORDERED: Midodrine 5 MG Tab PO SCH (09:00)
[2023-05-30] MEDS ORDERED: Insulin Glargine-Yfgn 100 Unit/mL 3 ML SYR SC SCH (09:00)
[2023-05-30] MEDS ORDERED: Atorvastatin 40 MG Tab PO SCH (09:00)
[2023-05-30] MEDS ORDERED: Nicotine 21 MG PATCH TOP SCH (09:00)
--- NOTE | 2023-05-30 09:20 | NUR ---
AM NOTE... ASSUMED CARE OF PT AT 0700, PT IS A&O TO SELF, PLACE AND FOLLOWING DIRECTIONS, PT'S SPEECH IS VERY MUMBLED AND HARD TO UNDERSTAND EVEN WHEN NOT ON THE BIPAP MASK. HE WAS IN SR IN THE 70'S-80'S W/BBB, LEVOPHED IS RUNNING AT 2MCG/MIN TO KEEP MAPS>65. NO SWELLING OR EDEMA IS NOTED ON THIS ASSESSMENT. HE IS ON BIPAP AT 14/8 AND 60% WITH O2 SATS>92% L/S COARSE T/O, RR IS IN THE 20'S. PT WAS TRIALED OFF BIPAP AND PLACED ON 4L NC, HE TOLERATED THIS FOR APROX 30MINS BEFORE HE STARTED TO DESAT DOWN TO THE LOW 80'S, THE O2 WAS TITRATED UP TO 6L WITH O2 SATS STILL IN THE 80'S THE BIPAP WAS PLACED BACK ON THE PT, AT 14/8 AND 40%. AFTER THE PT'S HYPOXIC EPISODE HIS RYTHM CHANGED FROM SR W/BBB TO JUNCTIONAL IN THE 50'S-60'S. EKG WAS TAKEN, PROVIDER AWARE. AT 0900 DR. PLASCENCIA WAS AT THE BEDSIDE, PLANS TO REVIEW THE ECHO AND GO FROM THERE. WILL CONTINUE TO MONITOR.
[2023-05-30 09:37] LABS: U Amphetamine Screen Not Detected; U Barbituate Screen Not Detected; U Benzodiazapine Screen Not Detected; U Buprenorphine Screen Not Detected; U Cannabinoids Screen Not Detected; U Cocaine Screen Not Detected; U Methadone Screen Not Detected; U Methamphetamine Screen Not Detected; U Opiates Screen Not Detected; U Oxycodone Screen Not Detected; U Phencyclidine Screen Not Detected
[2023-05-30 10:25] LABS: Hematocrit 37.6 % (37.0-53.0); Hemoglobin 12.3 g/dL (13.5-17.5); Mean Corpuscular HGB 30.3 pg (26.0-34.0); Mean Corpuscular HGB Conc 32.7 g/dL (31.5-36.5); Mean Corpuscular Volume 93 fL (80-100); Mean Platelet Volume 10.1 fL (9.1-12.4); Platelet Count 381 K/mm3 (150-400); RDW Coefficient Variation 14.5 % (11.7-14.2); RDW Standard Deviation 49.4 fL (35.1-46.3); Red Blood Cell Count 4.06 M/mm3 (4.30-5.90); White Blood Cell Count 15.25 K/mm3 (4.00-11.30)
[2023-05-30 10:40] LABS: Albumin/Globulin Ratio 0.8 (0.8-1.8); Bilirubin, Total 0.4 mg/dL (0.1-1.0); Creatinine, Blood 1.09 mg/dL (0.60-1.20); Potassium, Blood 4.4 mmol/L (3.5-5.5)
[2023-05-30] MEDS ORDERED: Ipratropium/Albuterol SulF 2.5-0.5MG/3 ML Amp INH PRN (10:55)
[2023-05-30] MEDS ORDERED: LORazepam 2 MG/ML 1ML Injection IV PRN (12:20)
[2023-05-30 13:38] LABS: Bun/Creatinine Ratio 46.1 (12.0-20.0); Calcium, Blood 6.7 mg/dL (8.5-10.1); Creatinine, Blood 0.89 mg/dL (0.60-1.20); Potassium, Blood 3.7 mmol/L (3.5-5.5)
[2023-05-30] MEDS ORDERED: Enoxaparin 60 MG/0.6 ML SYR SC SCH (14:00)
[2023-05-30] MEDS ORDERED: Calcium Chloride 10% 2,000 MG in NS 100 ML IV ONE (14:40)
[2023-05-30] MEDS ORDERED: Ondansetron HCl 2 MG / ML 2ML Vial ONE (14:46)
[2023-05-30] MEDS ORDERED: Azithromycin 500 MG in NS 250 ML IV SCH (15:00)
[2023-05-30] MEDS ORDERED: Furosemide 10 MG / ML 2ML Vial IV SCH (15:29)
[2023-05-30] MEDS ORDERED: Ondansetron HCl 2 MG / ML 2ML Vial IV PRN (15:30)
[2023-05-30] MEDS ORDERED: NS 250 ML IV PRN (15:40)
[2023-05-30] MEDS ORDERED: Piperacillin/Tazobactam Sod 3.375 GM in NS 100 ML IV SCH (16:00)
[2023-05-30] MEDS ORDERED: propofoL 100 ML IV SCH (16:05)
[2023-05-30] MEDS ORDERED: Vancomycin HCL 1,250 MG in NS 250 ML IV ONE (16:10)
[2023-05-30 16:19] LABS: Source, Urine Foley catheter
[2023-05-30 16:28] LABS: Appearance, Urine Hazy (Clear); Bilirubin, Urine Neg (Neg); Blood, Urine 1+ (Neg); Color, Urine Yellow (P-Yellow); Glucose Qualitative, Urine 2+ (Neg); Ketones, Urine 1+ (Neg); Leukocyte Esterase, Urine Neg (Neg); Nitrite, Urine Neg (Neg); Protein, Urine 2+ (Neg); Specific Gravity, Urine 1.025 (1.003-1.022); Urobilinogen, Urine NORM (Normal)
[2023-05-30 16:42] LABS: Amorphous Light (0-Heavy); Bacteria Many /hpf; Granular Casts 0-2 /lpf (0); Mucus Light (0-Heavy); Squamous Epithelial Cells Few /hpf (Few)
[2023-05-30 16:43] LABS: Red Blood Cells, Urine 0-2 /hpf (0-2)
[2023-05-30 17:57] LABS: PCO2 Arterial 46.3 mmHg (35-45); PO2 Arterial 174 mmHg (80-100); pH Blood Arterial 7.27 (7.35-7.45)
[2023-05-30 18:50] LABS: Hematocrit 38.7 % (37.0-53.0); Hemoglobin 12.7 g/dL (13.5-17.5); Mean Corpuscular HGB 30.5 pg (26.0-34.0); Mean Corpuscular HGB Conc 32.8 g/dL (31.5-36.5); Mean Corpuscular Volume 93 fL (80-100); Mean Platelet Volume 9.8 fL (9.1-12.4); Platelet Count 384 K/mm3 (150-400); RDW Coefficient Variation 14.4 % (11.7-14.2); Red Blood Cell Count 4.17 M/mm3 (4.30-5.90); White Blood Cell Count 21.79 K/mm3 (4.00-11.30)
[2023-05-30] MEDS ORDERED: Thiamine HCl 100 MG in NS 50 ML IV SCH (19:00)
[2023-05-30] MEDS ORDERED: Folic Acid 1 MG in NS 50 ML IV SCH (19:00)
--- NOTE | 2023-05-30 19:05 | NUR ---
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address] VALVERDE WAS AT THE BEDSIDE TO ASSESS THE PT, NEW ORDERS FOR PRECEDEX DRIP AND LASIX WERE GIVEN. THE PT WAS GIVEN 0.5MG IV ATIVAN WHICH HE HAD TOLERATED WELL EARLIER. THIS HELPED HIS WORK OF BREATHING A LITTLE BUT HIS RR WAS STILL IN THE 30'S-40'S, PT CONTINUED TO BE VERY ANXIOUS AND WAS ATTEMPTING TO CLIMB OUT OF BED, HIS PALLOR WAS DUSKY PURPLE/KYLE. THE PRECEDEX DRIP WAS STARTED AND WAS ON FOR APROX 15 MINS WHEN THIS RN NOTED THERE WAS FOAM COMING OUT OF THE PT'S MOUTH AND NOSE, THE BIPAP MASK WAS REMOVED AND THE PT'S MOUTH AND NOSE WERE SUCTIONED, THE PT WAS NOTED TO BE AGONAL BREATHING AT THIS TIME. THE PROVIDER WAS CALLED AND THE PT WAS INTUBATED BY DR. CLARK AT 1556. A PICC LINE WAS PLACED TO THE PT'S MAYA, LEVOPHED WAS TITRATED UP TO 8MCG/MIN TO KEEP MAPS>65, PROPOFOL WAS TITRATED UP TO 45MCG/KG FOR A RASS OF -1. TEMP PALACIOS WAS PLACED AND UA WAS SENT. THE PT'S SISTER LES WAS UPDATED BY MATILDE VANG RN. REPORT WAS GIVEN TO RONI KIDD.
--- NOTE | 2023-05-30 19:18 | NUR ---
PT INTUBATION.... PT WAS INTUBATED BY DR. CLARK AT 1556... 1556: 129/83, 102 SINUS TACH. 1557: 15 MG ETOMIDATE 1557: 80MG IV TONYA GIVEN, RT BAGGING THE PT. 1559: INTUBATED 7.5/25 AT THE LIP +COLOR CHANGE AND BILATERAL BREATH SOUNDS. 1559: FOAM WHITE FOAM NOTED TO BE COMING OUT OF THE ET TUBE. ET TUBE SUCTIONED BY RT. VENT SETTINGS: AC/PC: 14 RATE 28/8 AND 100% WITH O2 SATS>90%.
[2023-05-30 19:20] LABS: Albumin, Blood 2.8 g/dL (3.4-5.0); Albumin/Globulin Ratio 0.7 (0.8-1.8); Bilirubin, Total 0.7 mg/dL (0.1-1.0); Bun/Creatinine Ratio 50.9 (12.0-20.0); Creatinine, Blood 1.06 mg/dL (0.60-1.20); Potassium, Blood 5.4 mmol/L (3.5-5.5); Total Protein, Blood 6.8 g/dL (6.4-8.2)
[2023-05-30 19:21] LABS: Calcium, Blood 11.1 mg/dL (8.5-10.1)
[2023-05-30 19:39] LABS: BAND PERCENT MAN 27 % (0-8); BASOPHILS PERCENT MAN 0 % (0-2); EOSINOPHILS PERCENT MAN 0 % (0-6); LYMPHOCYTES ABSOLUTE MAN 0.43 K/mm3 (0.84-5.20); LYMPHOCYTES PERCENT MAN 2 % (21-46); MONOCYTES ABSOLUTE MAN 0.21 K/mm3 (0.16-1.47); MONOCYTES PERCENT MAN 1 % (4-13); NEUTROPHILS ABSOLUTE MAN 21.13 K/mm3 (1.96-9.15); SEG NEUTROPHILS PERCENT MAN 70 % (41-73); TOTAL CELLS COUNTED 100
--- NOTE | 2023-05-30 20:21 | NUR ---
ASSUMED CARE OF PATIENT AT 1900. REPORT RECEIVED FROM BERNABE BEEBE. PT APPEARS TO BE RESTING COMFORTABLY. PROPOFOL INFUSING AT 45 MCG/KG/MIN, LEVOPHED INFUSING AT 8 MCG/MIN. VENT SETTINGS ACCOUNTANCY PROFESSOR //50%. NO ACUTE NEEDS IDENTIFIED AT THIS TIME. SEE SHIFT ASSESSMENT FOR FULL DETAILS.
[2023-05-30 20:31] LABS: Adenovirus Not Detected (NOT DETECT); Bordetella pertussis Not Detected (NOT DETECT); Chlamydophila pneumoniae Not Detected (NOT DETECT); Coronavirus 229E Not Detected (NOT DETECT); Coronavirus HKU1 Not Detected (NOT DETECT); Coronavirus NL63 Not Detected (NOT DETECT); Coronavirus OC43 Not Detected (NOT DETECT); Human Metapneumovirus Not Detected (NOT DETECT); Human Rhinovirus/Enterovirus Not Detected (NOT DETECT); Influenza A/2009-H1 Not Detected (NOT DETECT); Influenza A/H1 Not Detected (NOT DETECT); Influenza A/H3 Not Detected (NOT DETECT); Influenza B Not Detected (NOT DETECT); Mycoplasma pneumoniae Not Detected (NOT DETECT); Parainfluenza Virus 1 Not Detected (NOT DETECT); Parainfluenza Virus 2 Not Detected (NOT DETECT); Parainfluenza Virus 3 Not Detected (NOT DETECT); Parainfluenza Virus 4 Not Detected (NOT DETECT); Respiratory Syncytial Virus Not Detected (NOT DETECT); SARS-Cov-2 (COVID-19), BioFire Not Detected (NOT DETECT)
[2023-05-30 22:19] LABS: Acinetobacter baumannii DNA Not Detected copy/mL (NOT DETECT); Adenovirus DNA Not Detected (NOT DETECT); Chlamydia pneumonia Not Detected (NOT DETECT); Enterobacter cloacae DNA Not Detected copy/mL (NOT DETECT); Escherichia coli DNA Detected Bin 10^4 copy/mL (NOT DETECT); Haemophilus influenzae DNA Not Detected copy/mL (NOT DETECT); Klebsiella aerogenes DNA Not Detected copy/mL (NOT DETECT); Klebsiella oxytoca DNA Not Detected copy/mL (NOT DETECT); Klebsiella pneumoniae DNA Not Detected copy/mL (NOT DETECT); Legionella pneumophila Not Detected (NOT DETECT); Moraxella catarrhalis DNA Detected Bin 10^6 copy/mL (NOT DETECT); Mycoplasma pneumoniae Not Detected (NOT DETECT); Proteus sp DNA Not Detected copy/mL (NOT DETECT); Pseudomonas aeruginosa DNA Not Detected copy/mL (NOT DETECT); Serratia marcescens DNA Not Detected copy/mL (NOT DETECT); Staphylococcus aureus DNA Not Detected copy/mL (NOT DETECT); Streptococcus agalactiae DNA Not Detected copy/mL (NOT DETECT); Streptococcus pneumoniae DNA Detected Bin >=10^7 copy/mL (NOT DETECT); Streptococcus pyogenes DNA Not Detected copy/mL (NOT DETECT)
[2023-05-30 22:20] LABS: Human Coronavirus RNA Detected (NOT DETECT); Human Metapneumovirus RNA Not Detected (NOT DETECT); Influenza virus A RNA Not Detected (NOT DETECT); Influenza virus B RNA Not Detected (NOT DETECT); Parainfluenza virus RNA Not Detected (NOT DETECT); Respiratory syncytial Vir RNA Not Detected (NOT DETECT); Rhinovirus+Enterovirus RNA Not Detected (NOT DETECT)
[2023-05-30] MEDS ORDERED: Etomidate 2MG / ML 10ML Vial XX ONE (23:34)
[2023-05-30] MEDS ORDERED: Rocuronium Bromide 10 MG/ML 5ML Injection IV ONE (23:34)
[2023-05-31] VITALS (99 sets, daily range): BP systolic 71–164; BP diastolic 48–90
[2023-05-31 03:54] LABS: Hematocrit 39.9 % (37.0-53.0); Hemoglobin 13.4 g/dL (13.5-17.5); Mean Corpuscular HGB 30.4 pg (26.0-34.0); Mean Corpuscular HGB Conc 33.6 g/dL (31.5-36.5); Mean Corpuscular Volume 91 fL (80-100); Mean Platelet Volume 9.8 fL (9.1-12.4); Platelet Count 369 K/mm3 (150-400); RDW Coefficient Variation 14.6 % (11.7-14.2); RDW Standard Deviation 48.1 fL (35.1-46.3); Red Blood Cell Count 4.41 M/mm3 (4.30-5.90); White Blood Cell Count 23.32 K/mm3 (4.00-11.30)
[2023-05-31 04:14] LABS: Albumin, Blood 2.6 g/dL (3.4-5.0); Anion Gap 12 mmol/L (3-11); Blood Urea Nitrogen 47 mg/dL (8-24); Bun/Creatinine Ratio 55.1 (12.0-20.0); CO2, Blood 24 mmol/L (21-32); Calcium, Blood 10.1 mg/dL (8.5-10.1); Chloride, Blood 109 mmol/L (98-108); Creatinine, Blood 0.85 mg/dL (0.60-1.20); Glomerular Filtration Rate 99 (60-); Glucose, Blood 164 mg/dL (70-99); Phosphorus, Blood 4.2 mg/dL (2.5-4.9); Potassium, Blood 5.1 mmol/L (3.5-5.5); Sodium, Blood 140 mmol/L (136-145)
[2023-05-31 04:26] LABS: BAND PERCENT MAN 9 % (0-8); BASOPHILS PERCENT MAN 0 % (0-2); EOSINOPHILS PERCENT MAN 0 % (0-6); LYMPHOCYTES ABSOLUTE MAN 2.56 K/mm3 (0.84-5.20); LYMPHOCYTES PERCENT MAN 11 % (21-46); MONOCYTES ABSOLUTE MAN 0.69 K/mm3 (0.16-1.47); MONOCYTES PERCENT MAN 3 % (4-13); NEUTROPHILS ABSOLUTE MAN 20.05 K/mm3 (1.96-9.15); SEG NEUTROPHILS PERCENT MAN 77 % (41-73); TOTAL CELLS COUNTED 100
--- NOTE | 2023-05-31 05:27 | NUR ---
SHIFT SUMMARY PT REMAINED INTUBATED AND SEDATED T/O ENTIRETY OF SHIFT. BRIEF EYE OPENING RESPONSE TO VERBAL OR NOXIOUS STIMULI, BUT WAS UNABLE TO FOLLOW COMMANDS OR MAKE PURPOSEFUL MOVEMENTS. SHOOK HEAD "NO" ONCE WHEN ASKED IF HE WAS IN PAIN. MONITOR SHOWED SR WITH HR IN 60'S-80'S. SBP IN 90'S-120'S. LEVOPHED INFUSING AT 8 MCG/MIN WITH MAP SUSTAINED AT > 65. VENT SETTINGS A/C PC 18/14/7/30%. SCANT, THICK, PLUNKETT + RED TINGED SECRETIONS FROM ETT. SMALL, THICK, BROWN BM THIS SHIFT. OG TUBE TO LIS. PALACIOS IN PLACE, PATENT AND DRAINING CLEAR YELLOW + MALODOROUS URINE TO GRAVITY. UCX PENDING. VARIOUS BRUISES/SCABS T/O. PICC TO MAYA INFUSING PROPOFOL AT 45 MCG/KG/MIN. PIV TO LAC FLUSHES BUT DOES NOT DRAW. WILL CONTINUE TO MONITOR AND REPORT TO ONCOMING RN.
[2023-05-31] MEDS ORDERED: Vancomycin HCL 1,000 MG in NS 100 ML IV SCH (06:00)
--- NOTE | 2023-05-31 07:58 | NUR ---
AM NOTE... ASSUMED CARE OF PT AT 0700, PT IS INTUBATED AND SEDATED WITH PROPOFOL RUNNING AT 45MCG/KG FOR A RASS OF -1, PT WITHDRAWS FROM NOXIOUS STIMULI. VENT SETTINGS ARE AC/PC: 18 RATE 18/7 30% WITH O2 SATS>95%. L/S COARSE RHONCHI T/O THAT IMPROVE WITH SUCTIONING. SPUTUM IS A SMALL AMOUNT THAT IS FROTHY, LIGHT YELLOW WITH A PINK TINGE. PT IS IN SR W/BBB IN THE 80'S BP IS STABLE ON 8MCG/MIN OF LEVOPHED TO KEEP MAPS>65. NO SWELLING OR EDEMA IS NOTED ON THIS ASSESSMENT. BT PRESENT AND HYPOACTIVE, ABD IS SOFT TO PALPATION. OG TUBE IS CLAMPED AT THIS TIME. PALACIOS IS PATENT AND DRAINING TO GRAVITY. 0745: DR. VALVERDE AT THE BEDSIDE TO ASSESS THE PT. NO NEW ORDERS AT THIS TIME. WILL CONTINUE TO MONITOR.
[2023-05-31] MEDS ORDERED: Pantoprazole Sodium 40 MG Injection IV SCH (09:00)
[2023-05-31] MEDS ORDERED: Atorvastatin 40 MG Tab PT SCH (09:00)
[2023-05-31] MEDS ORDERED: Enoxaparin 40 MG/0.4 ML SYR SC SCH (09:00)
[2023-05-31] MEDS ORDERED: Aspirin 81 MG Chew PT SCH (09:00)
[2023-05-31] MEDS ORDERED: FentaNYL Citrate 50 MCG/ML 2 ML Injection IV PRN (16:55)
[2023-05-31] MEDS ORDERED: Heparin Sodium,Porcine/0.5 NS 500 ML IV SCH (17:10)
[2023-05-31] MEDS ORDERED: Heparin Sodium 5000 Units/ML 1ML MDV IV ONE (17:10)
--- NOTE | 2023-05-31 18:23 | NUR ---
SHIFT SUMMARY... NO CHANGES TO THE PT'S VENT SETTINGS. THE PT'S SECRETIONS FROM THE ET TUBE HAVE INCREASED T/O THIS SHIFT, THEY ARE CURRENTLY COPIOUS THICK PLUNKETT WITH OCC PINK FLECKS. PT ALSO HAS COPIOUS ORAL SECRETIONS. THE PROPOFOL HAS BEEN OFF MOST OF THIS SHIFT PT IS TOLERATING THE VENT WELL OFF SEDATION, PRN IV FENTANYL 50-75MCG Q3 ORDERED. PT TOLERATED 50MCG WELL. PT WAS GIVEN A BEDBATH AND LINEN CHANGE THIS SHIFT. NO BM. AT THE 1600 ASSESSMENT THIS RN NOTED THE PT'S RIGHT FOOT WAS COOL TO THE TOUCH, MORE SO THAN THE RIGHT, THE TOES WERE PURPLE AND THE WHOLE FOOT WAS MOTTLED UP TO THE TOP OF HIS ANKLE, DR. ENGLISH WAS NOTIFIED, ORDERS TO START A HEPARIN DRIP AND ARTERIAL DUPLEX WERE GIVEN, THE DUPLEX WAS DONE IN THE ROOM, AWAITING RESULTS. TUBE FEEDS WERE STARTED AT 1600 THIS SHIFT AT 25MLS/HR. WILL CONTINUE TO MONITOR UNTIL REPORT IS GIVEN TO ONCOMING RN.
[2023-05-31] MEDS ORDERED: Hydrogen Peroxide 1.5 % Solution MT SCH ×3 (20:00)
--- NOTE | 2023-05-31 21:00 | NUR ---
ASSUMED CARE AT 1900 PT LAYING IN BED INTUBATED WITH VENT SETTINGS AC/PC RATE 18, 18/7, FIO2 30%; LARGE AMOUNT OF THICK PLUNKETT SECREATIONS FROM ETT. HE IS RESPONSIVE TO VERBAL STIMULI; DOESN'T ALWAYS FOLLOW DIRECTIONS BUT IS MOVING ALL EXTREMITIES; HES ANSWERING SOME Y/N QUESTIONS; DENIES PAIN AT THIS TIME; PRN FENTANYL AVAIABLE AND PROPOFOL CURRENTLY ON SB. AFEBRILE. HR 80'S. SBP 80-90'S WITH MAP >65; LEVOPHED INFUSING AT 3MCG/MIN; DOPPLER NEEDED FOR LT PEDAL PUSLE, ABSENT LT TIBIAL PULSE. VHP INFUSING VIA OG AT 25ML/HR (GOAL) WITH 30ML WATER FLUSHES Q4HR. PALACIOS IN PLACE AND DRAINING TO GRAVITY. HEPAIN INFUSING AT 18UNITS/KG/HR. SEE SHIFT ASSESSMENT FOR FULL ASSESSMENT.
[2023-06-01] VITALS (94 sets, daily range): BP systolic 78–124; BP diastolic 51–87
[2023-06-01] MEDS ORDERED: Dose Adjust by Pharmacy XX STA ×3 (00:12→14:09)
[2023-06-01 05:34] LABS: BASOPHILS ABSOLUTE AUTO 0.06 K/mm3 (0.00-0.23); BASOPHILS PERCENT AUTO 0 % (0-2); EOSINOPHILS ABSOLUTE AUTO 0.05 K/mm3 (0.00-0.68); EOSINOPHILS PERCENT AUTO 0 % (0-6); Hematocrit 30.8 % (37.0-53.0); Hemoglobin 10.6 g/dL (13.5-17.5); IMMATURE GRAN ABSOLUTE AUTO 0.06 K/mm3 (0.00-0.10); IMMATURE GRAN PERCENT AUTO 0 % (0-1); LYMPHOCYTES ABSOLUTE AUTO 1.34 K/mm3 (0.84-5.20); LYMPHOCYTES PERCENT AUTO 9 % (21-46); MONOCYTES ABSOLUTE AUTO 0.71 K/mm3 (0.16-1.47); MONOCYTES PERCENT AUTO 5 % (4-13); Mean Corpuscular HGB 30.4 pg (26.0-34.0); Mean Corpuscular HGB Conc 34.4 g/dL (31.5-36.5); Mean Corpuscular Volume 88 fL (80-100); Mean Platelet Volume 9.8 fL (9.1-12.4); NEUTROPHILS ABSOLUTE AUTO 13.26 K/mm3 (1.96-9.15); NEUTROPHILS PERCENT AUTO 86 % (41-73); Platelet Count 252 K/mm3 (150-400); RDW Coefficient Variation 14.6 % (11.7-14.2); RDW Standard Deviation 46.8 fL (35.1-46.3); Red Blood Cell Count 3.49 M/mm3 (4.30-5.90); White Blood Cell Count 15.48 K/mm3 (4.00-11.30)
[2023-06-01 05:54] LABS: Albumin, Blood 2.3 g/dL (3.4-5.0); Anion Gap 8 mmol/L (3-11); Blood Urea Nitrogen 37 mg/dL (8-24); Bun/Creatinine Ratio 49.9 (12.0-20.0); CO2, Blood 28 mmol/L (21-32); Calcium, Blood 9.5 mg/dL (8.5-10.1); Chloride, Blood 108 mmol/L (98-108); Creatinine, Blood 0.74 mg/dL (0.60-1.20); Glomerular Filtration Rate 103 (60-); Glucose, Blood 209 mg/dL (70-99); Phosphorus, Blood 2.4 mg/dL (2.5-4.9); Potassium, Blood 3.2 mmol/L (3.5-5.5); Sodium, Blood 141 mmol/L (136-145); Vancomycin, Trough 13.9 ug/mL (5.0-10.0)
[2023-06-01] MEDS ORDERED: Potassium Chl 20MEQ/Water100ML 100 ML IV STA (06:48)
[2023-06-01] MEDS ORDERED: Potassium Phosphate Dibasic 15 MM in Dextrose 5% 250 ML IV STA (06:48)
--- NOTE | 2023-06-01 07:20 | NUR ---
END OF SHIFT SUMMARY NO ACUTE EVENTS OVERNIGHT. HE CONT TO BE INTUBATED WITH VENT SETTINGS AC/PC RATE 18, 18/7, FIO2 30%; MODERATE AMOUNT OF THICK SECREATIONS FROM ETT. NO SEDATION ALL NIGHT; HE IS ABLE TO ANSWER Y/N QUESTIONS OCCATIONALLY. AFEBRILE. HR 70-90'S. SBP 90-110'S WITH LEVOPHED INFUSING AT 2MCG/MIN. VHP INFUSING AT GOAL; NO BM THIS SHIFT. PALACIOS IN PLACE AND DRAINING TO GRAVITY. CONT TO ONLY HAVE DOPPLER PULSES IN LT PEDAL BUT NOT POSTERIOR TIBIAL. HEPARIN INFUSING AT 18UNITS/KG/HR. PICC LINE TO BALWINDER ORDONEZ AND DRESSING CHANGED THIS SHIFT. WILL REPORT TO AM RN WHEN AVAILABLE.
--- NOTE | 2023-06-01 07:30 | NUR ---
ASSUME CARE: I have assumed care of this patient.
[2023-06-01] MEDS ORDERED: Potassium Chloride 20 MEQ/15 ML UDC PT SCH (09:00)
--- NOTE | 2023-06-01 09:49 | NUR ---
FAMILY UPDATE: Pt's sister, Sophia, updated via telephone.
[2023-06-01] MEDS ORDERED: Metolazone 5 MG Tab PT ONE (10:00)
[2023-06-01] MEDS ORDERED: Furosemide 10 MG / ML 2ML Vial IV SCH (12:00)
[2023-06-01 12:22] LABS: Acinetobacter baumannii DNA Not Detected copy/mL (NOT DETECT); Enterobacter cloacae DNA Not Detected copy/mL (NOT DETECT); Escherichia coli DNA Detected Bin 10^5 copy/mL (NOT DETECT)
[2023-06-01 12:23] LABS: CTX-M Resistance Gene Not Detected; Haemophilus influenzae DNA Not Detected copy/mL (NOT DETECT); Klebsiella aerogenes DNA Not Detected copy/mL (NOT DETECT); Klebsiella oxytoca DNA Not Detected copy/mL (NOT DETECT); Klebsiella pneumoniae DNA Not Detected copy/mL (NOT DETECT); Moraxella catarrhalis DNA Detected Bin 10^4 copy/mL (NOT DETECT); Proteus sp DNA Not Detected copy/mL (NOT DETECT); Pseudomonas aeruginosa DNA Not Detected copy/mL (NOT DETECT); Serratia marcescens DNA Not Detected copy/mL (NOT DETECT); Staphylococcus aureus DNA Not Detected copy/mL (NOT DETECT); Streptococcus agalactiae DNA Not Detected copy/mL (NOT DETECT); Streptococcus pneumoniae DNA Detected Bin 10^6 copy/mL (NOT DETECT); Streptococcus pyogenes DNA Not Detected copy/mL (NOT DETECT)
[2023-06-01 12:24] LABS: Adenovirus DNA Not Detected (NOT DETECT); Chlamydia pneumonia Not Detected (NOT DETECT); Human Coronavirus RNA Not Detected (NOT DETECT); Human Metapneumovirus RNA Not Detected (NOT DETECT); IMP Resistance Gene Not Detected; Influenza virus A RNA Not Detected (NOT DETECT); Influenza virus B RNA Not Detected (NOT DETECT); KPC Resistance Gene Not Detected; Legionella pneumophila Not Detected (NOT DETECT); Mycoplasma pneumoniae Not Detected (NOT DETECT); NDM Resistance Gene Not Detected; OXA-48-like Resistance Gene Not Detected; Parainfluenza virus RNA Not Detected (NOT DETECT); Respiratory syncytial Vir RNA Not Detected (NOT DETECT); Rhinovirus+Enterovirus RNA Not Detected (NOT DETECT); VIM Resistance Gene Not Detected
[2023-06-01] MEDS ORDERED: CefTRIAXone Sodium 1,000 MG in NS 50 ML IV SCH (14:00)
--- NOTE | 2023-06-01 18:45 | NUR ---
SHIFT SUMMARY: Pt has been off sedation all day today. He tolerated a short SBT this afternoon with RT at bedside, stimulating and coaching pt. Once RT left room, pt began taking small tidal volumes. Potassium and Kphos replaced this AM. Tube feeds increased to 30mls/hr. Diuretics increased with good effect. Fluid balance -900. Soft wrist restraints continue in place as pt reaches for ETT when liberated from restraints. He nods "yes" or "no" appropriately and VELEZ. Blood sugar covered with one unit twice today. Sister, Sophia, updated via telephone. Sister, Caprice, was directed to call Sophia for information at pt's request. Friends whom pt lives with were at bedside and supportive today.
[2023-06-01 19:31] LABS: Bun/Creatinine Ratio 46.7 (12.0-20.0); Calcium, Blood 9.5 mg/dL (8.5-10.1); Creatinine, Blood 0.75 mg/dL (0.60-1.20); Potassium, Blood 3.2 mmol/L (3.5-5.5)
[2023-06-01] MEDS ORDERED: Potassium Chl 20MEQ/Water100ML 100 ML IV ONE (19:50)
[2023-06-01] MEDS ORDERED: Potassium Chloride 20 MEQ/15 ML UDC PT ONE (19:50)
--- NOTE | 2023-06-01 22:33 | NUR ---
ASSUMED CARE AT 1900 PT LAYING IN BED INTUBATED WITH VENT SETTINGS AC/PC RATE 18, 18/5, FIO2 30%, RR 18-20; LARGE AMOUNT OF THICK SECREATIONS FROM ETT. HE IS NOT SEDATED AND HE IS MORE ALERT THAN PREVIOUS DAY; ANSWERING Y/N QUESTIONS APPROPRIATLY; CURRENTLY DENIES PAIN. AFEBRILE. HR 70-80'S. SBP 100'S; LEVOPHED INFUSING AT 2MCG/MIN; LT FOOT SLIGHTLY WARMER THAN PREVIOUS DAY BUT CONT TO NOT HAVE ABSENT L TIBIAL PULSE AND DOPPLER L PEDAL PULSE. PIVOT INFUSING VIA OG AT 30ML/HR WITH 30ML H20 FLUSHES Q4HR. PALACIOS IN PLACE AND DRAINING TO GRAVITY. HEPARIN INFUSING AT 20UNITS/KG/HR. PICC TO RUE PATENT WITH DRESSING C/D/I. SEE SHIFT ASSESSMENT FOR FULL ASSESSMENT.
[2023-06-02] VITALS (83 sets, daily range): BP systolic 74–116; BP diastolic 53–88
[2023-06-02 03:39] LABS: BASOPHILS ABSOLUTE AUTO 0.04 K/mm3 (0.00-0.23); BASOPHILS PERCENT AUTO 0 % (0-2); EOSINOPHILS ABSOLUTE AUTO 0.11 K/mm3 (0.00-0.68); EOSINOPHILS PERCENT AUTO 1 % (0-6); Hematocrit 30.4 % (37.0-53.0); Hemoglobin 10.5 g/dL (13.5-17.5); IMMATURE GRAN ABSOLUTE AUTO 0.06 K/mm3 (0.00-0.10); IMMATURE GRAN PERCENT AUTO 0 % (0-1); LYMPHOCYTES ABSOLUTE AUTO 1.18 K/mm3 (0.84-5.20); LYMPHOCYTES PERCENT AUTO 9 % (21-46); MONOCYTES ABSOLUTE AUTO 0.79 K/mm3 (0.16-1.47); MONOCYTES PERCENT AUTO 6 % (4-13); Mean Corpuscular HGB 30.6 pg (26.0-34.0); Mean Corpuscular HGB Conc 34.5 g/dL (31.5-36.5); Mean Corpuscular Volume 89 fL (80-100); Mean Platelet Volume 10.2 fL (9.1-12.4); NEUTROPHILS ABSOLUTE AUTO 11.31 K/mm3 (1.96-9.15); NEUTROPHILS PERCENT AUTO 84 % (41-73); Platelet Count 251 K/mm3 (150-400); RDW Coefficient Variation 14.6 % (11.7-14.2); RDW Standard Deviation 46.6 fL (35.1-46.3); Red Blood Cell Count 3.43 M/mm3 (4.30-5.90); White Blood Cell Count 13.49 K/mm3 (4.00-11.30)
[2023-06-02 03:56] LABS: Albumin, Blood 2.7 g/dL (3.4-5.0); Anion Gap 9 mmol/L (3-11); Blood Urea Nitrogen 36 mg/dL (8-24); Bun/Creatinine Ratio 47.4 (12.0-20.0); CO2, Blood 28 mmol/L (21-32); Calcium, Blood 9.8 mg/dL (8.5-10.1); Chloride, Blood 104 mmol/L (98-108); Creatinine, Blood 0.76 mg/dL (0.60-1.20); Glomerular Filtration Rate 102 (60-); Glucose, Blood 253 mg/dL (70-99); Magnesium, Blood 1.3 mg/dL (1.6-2.4); Phosphorus, Blood 2.3 mg/dL (2.5-4.9); Potassium, Blood 3.6 mmol/L (3.5-5.5); Sodium, Blood 137 mmol/L (136-145)
[2023-06-02] MEDS ORDERED: Dose Adjust by Pharmacy XX STA ×2 (04:16→11:54)
[2023-06-02] MEDS ORDERED: Potassium Phosphate Dibasic 20 MM in Dextrose 5% 500 ML IV ONE (05:10)
[2023-06-02] MEDS ORDERED: Magnesium Sul 4 GM/Water100 ML 100 ML IV ONE (05:10)
--- NOTE | 2023-06-02 06:42 | NUR ---
END OF SHIFT SUMMARY NO ACUTE EVENTS OVER NIGHT. HE CONT TO BE INTUBATED WITH SETTINGS AC/PC RATE 18, 18/5, 30%; CONT TO HAVE LARGE AMOUNTS OF THICK SECREATIONS. HE IS NOT SEDATED AND MORE ALERT THIS AM; FOLLOWING DIRECTIONS, POINTING AT THE ETT, AND TRYING TO TALK AROUND THE ETT; NOT SHOWING SIGNS OF DISTRESS. AFEBRILE. HR 70-80'S. SBP 80-110; MAP > 65; LEVOPHED PLACED ON SB AT 0445. PIVOT INFUSING VIA OG AT GOAL; NO BM THIS SHIFT. PALACIOS IN PLACE AND DRAINING TO GRAVIYT. NO CHANGES TO LT FOOT REGARDING PULSES AND COLOR. HEPARIN INFUSING AT 21UNITS/KG/HR. PICC TO RUE PATENT WITH DRESSING C/D/I. WILL REPORT TO AM RN WHEN AVAILABLE.
--- NOTE | 2023-06-02 07:00 | NUR ---
CARE ASSUMPTION DURING BEDSIDE SHIFT REPORT Juliana Andrews RN THE PT IS LYING IN BED INTUBATED ON THE VENTILATOR. PT IS ALERT AND MAINTAINING EYE CONTACT. PT FOLLOWING COMMANDS AND NODDING HIS HEAD TO ANSWER YES OR NO QUESTIONS. PT HAS HEPARIN GTT INFUSING W RATE CONFIRMED W МАРИНА RN AT BEDSIDE. PT HAS NO SEDATION INFUSING AND DENIES ANY PAIN AT THE MOMENT. RT AT BEDSIDE SWITCHING THE PT TO PRESSURE SUPPORT. SPO2 >92% ON 30% FIO2. ET TUBE CONFIRMED AT BEDSIDE 7.5 23CM AT THE TEETH.
[2023-06-02] MEDS ORDERED: Metolazone 5 MG Tab PT ONE (10:00)
[2023-06-02] MEDS ORDERED: Potassium Chloride 20 MEQ/15 ML UDC PT SCH (10:00)
[2023-06-02] MEDS ORDERED: Docusate Sodium 100 MG UDC PT SCH (10:25)
[2023-06-02] MEDS ORDERED: Insulin Regular 100 UNIT/ML 10ML Vial SC SCH (12:00)
--- NOTE | 2023-06-02 17:23 | NUR ---
DAY SHIFT SUMMARY PT HAS BEEN ALERT AND FOLLOWING COMMANDS ALL SHIFT. PT TAKEN OUT OF RESTRAINTS THIS SHIFT AND HAS MADE NO ATTEMPTS TO PULL AT HIS ET TUBE OR LINES. PT UP IN A RECLINER FOR SEVERAL HOURS THIS SHIFT. PT ON NO DEATION THIS SHIFT BUT RECIEVED ONE DOSE OF IV FENTANYL FOR GENERALIZED PAIN. PT ON PRESSURE SUPPORT FOR SEVERAL HORS THIS AM BEFORE DR HOLM SWITCHED HIM BACK TO AC/VC 18/450/5 W 30% FIO2. PT AGAIN PLACED ON PS THIS AFTERNOON BY RT MATA AND THE PT HAS HAD NO APNEIC ALARMS AND IS PULLING GOOD VOLUMES. PT'S MONITOR SHOWING SR 70'S THIS SHIFT. PT HAD TO BE PLACED BACK ON LEVOPHED GTT THIS AM AND HAS REMAINED ON 2 MCG/MIN DESPITE MULTIPLE ATTEMPTS TO TURN THE GTT OFF BUT HIS BP DROPPS W SBP IN THE 70'S-80'S W MAPS <65 WHEN THE GTT IS OFF. PT AFEBRILE THIS SHIFT. PT ON TF FOR THE MOST OF THE SHIFT UNTIL THERE WAS CONCERN THAT HIS OG TUBE HAD BEEN PULLED OUT SOME SO DR. HOLM NOTIFIED OF CHANGE AND TF PLACED ON HOLD PER PROVIDER. PT'S PALACIOS PATENT AND DRAINING CLEAR YELLOW URINE THIS SHIFT. NO BM THIS SHIFT. WILL REPORT TO ONCOMING RN.
[2023-06-02] MEDS ORDERED: Furosemide 10 MG / ML 2ML Vial IV SCH (21:00)
[2023-06-03] VITALS (58 sets, daily range): BP systolic 72–114; BP diastolic 54–97
[2023-06-03 03:39] LABS: Hematocrit 28.4 % (37.0-53.0); Hemoglobin 9.7 g/dL (13.5-17.5); Mean Corpuscular HGB 30.2 pg (26.0-34.0); Mean Corpuscular HGB Conc 34.2 g/dL (31.5-36.5); Mean Corpuscular Volume 89 fL (80-100); Mean Platelet Volume 10.2 fL (9.1-12.4); Platelet Count 232 K/mm3 (150-400); RDW Coefficient Variation 14.4 % (11.7-14.2); RDW Standard Deviation 46.5 fL (35.1-46.3); Red Blood Cell Count 3.21 M/mm3 (4.30-5.90); White Blood Cell Count 10.48 K/mm3 (4.00-11.30)
[2023-06-03 03:59] LABS: Bun/Creatinine Ratio 47.6 (12.0-20.0); Calcium, Blood 8.6 mg/dL (8.5-10.1); Creatinine, Blood 0.63 mg/dL (0.60-1.20); Magnesium, Blood 1.7 mg/dL (1.6-2.4); Potassium, Blood 3.7 mmol/L (3.5-5.5)
[2023-06-03] MEDS ORDERED: Clarify Drug Order XX ONE (04:10)
[2023-06-03] MEDS ORDERED: Magnesium Sulf 2 GM/Water 50ML 50 ML IV ONE (04:15)
--- NOTE | 2023-06-03 05:57 | NUR ---
SHIFT SUMMERY PT REMAINS INTUBATED VIA ETT. INTERMITTANT EPISODES OF NOT PULLING TIDAL VOLUMES OVERNIGHT W/ADJUSTMENTS MADE TO VENT PER RT, DR HOLM AWARE. PT HAS BEEN AWAKE MOST OF THE NIGHT. HE REPOSITIONS HIMSELF IN BED, NODS HEAD APPROPRIATLY, PRESSES CALL LIGHT, AND WRITES NOTES. HE HAS BEEN SR ON THE ENGINEERING ANALYST. OXYGEN SAT HAVE REMAINED >90%. LEVO AND HEPARIN GTT-SEE FLOWSHEET. AFEBRILE. NO ACUTE CHANGES OVERNIGHT, POSSIBLE EXTUBATION TODAY.
[2023-06-03] MEDS ORDERED: Insulin Glargine-Yfgn 100 Unit/mL 3 ML SYR SC SCH ×2 (09:00)
--- NOTE | 2023-06-03 10:05 | NUR ---
AM NOTE... ASSUMED CARE OF PT AT 0700, PT INTUBATED, NOT SEDATED, FOLLOWS ALL COMMANDS, NODS/SHAKES HEAD APPROPRIATLEY TO QUESTIONS. HE WAS CHANGED TO SPONTAINOUS AT 0847 AT 5/5 AND 30%. L/S CLEAR T/O SLIGHTLY COARSE IN THE BASES. HE IS IN SR IN THE 70'S BP STABLE. NO EDEMA NOTED ON THIS ASSESSMENT. BT PRESENT AND HYPOACTIVE, ABD IS SOFT TO PALPATION. OG TUBE IS PATENT AND CLAMPED AT THIS TIME. PALACIOS IS PATENT AND DRAINING TO GRAVITY. AT 0915 PT CONVERTED FROM SR IN THE 70'S TO AFIB IN THE 100'S-120'S, BP STABLE PT DENIES ANY CHEST PAIN. AT 0947 PT WAS EXTUBATED TO 2L NC WITH O2 SATS>90%. WILL CONTINUE TO MONITOR.
[2023-06-03] MEDS ORDERED: Insulin Regular 100 UNIT/ML 10ML Vial SC SCH (12:00)
--- NOTE | 2023-06-03 18:19 | NUR ---
SHIFT SUMMARY... NO ACUTE NEGATIVE CHANGES NOTED THIS SHIFT. PT HAS BEEN ON RA TO 2L NC WITH O2 SATS>90% T/O THIS SHIFT. PT'S VS HAVE BEEN STABLE. PT WORKED WITH PT/OT GOT UP TO THE CHAIR WITH 1P ASSIST W/FWW. PT'S PALACIOS IS PATENT AND DRAINING TO GRAVITY. PT IS ANXIOUS TO GO HOME. PT FAILED BEDSIDE SWALLOW EVAL WITH THIS RN, SPEECH EVAL ORDERS PLACED. CALL LIGHT IN REACH WILL CONTINUE TO JULIAN.
--- NOTE | 2023-06-03 19:51 | NUR ---
ASSUME CARE PT RESTING COMFORTABLY IN BED, HEPARIN GTT IN PLACE, PICC LINE IN PLACE. PT REQUESTING JELLO/PUDDING BUT DOES NOT CURRENTLY HAVE A DIET ORDERED, WILL RE-EVALUATE BEDSIDE SWALLOW FOR APPROPRIATENESS. PT ABLE TO SPEAK, VOICE IS VERY HOARSE AND SOFT AT THIS TIME. PT ORIENTED TO SELF, PLACE, AND TIME, PT UNSURE OF WHAT REASON CAME TO HOSPITAL FOR. PALACIOS REMAINS IN PLACE. PT HAS NO COMPLAINTS OF PAIN AT THIS TIME.
[2023-06-04] VITALS (34 sets, daily range): BP systolic 69–99; BP diastolic 51–84
[2023-06-04 04:05] LABS: Hematocrit 31.4 % (37.0-53.0); Hemoglobin 10.6 g/dL (13.5-17.5); Mean Corpuscular HGB 30.4 pg (26.0-34.0); Mean Corpuscular HGB Conc 33.8 g/dL (31.5-36.5); Mean Corpuscular Volume 90 fL (80-100); Platelet Count 250 K/mm3 (150-400); RDW Standard Deviation 45.5 fL (35.1-46.3); Red Blood Cell Count 3.49 M/mm3 (4.30-5.90); White Blood Cell Count 8.19 K/mm3 (4.00-11.30)
[2023-06-04 04:23] LABS: Bun/Creatinine Ratio 55.4 (12.0-20.0); Calcium, Blood 9.4 mg/dL (8.5-10.1); Creatinine, Blood 0.69 mg/dL (0.60-1.20); Magnesium, Blood 2.2 mg/dL (1.6-2.4)
[2023-06-04] MEDS ORDERED: Clarify Drug Order XX ONE (04:45)
[2023-06-04] MEDS ORDERED: Dextrose 50% 50 ML Syringe IV ONE (06:05)
--- NOTE | 2023-06-04 06:37 | NUR ---
SHIFT SUMMARY PT SLEPT VERY LITTLE OVERNIGHT. PT REMAINS ORIENTED 3 - 4, BUT SEEMS CONFUSED AT TIMES. PALACIOS REMOVED AT 0630. AT 0615 PT HAD BG OF 67, PER MD SIEGEL PT WAS GIVEN AN AMP OF D50, RECHECK WAS IN 160'S. PT HAS NOT PASSED BEDSIDE SWALLOW AND CANNOT EAT AT THIS TIME. MD SIEGEL WAS NOTIFIED OF LACK OF ORAL INTAKE DURING PHONE NOTIFICATION AT 0625 AND NEED FOR SWALLOW STUDY.
[2023-06-04] MEDS ORDERED: Insulin Glargine-Yfgn 100 Unit/mL 3 ML SYR SC SCH (09:00)
[2023-06-04] MEDS ORDERED: NS 1,000 ML IV SCH (11:50)
[2023-06-04 12:40] LABS: Anti-Xa UFH, PHA Monitoring <0.10 IU/mL; International Normalized Ratio 1.02; Prothrombin Time Results 10.7 Sec (9.7-11.5)
[2023-06-04] MEDS ORDERED: Heparin Sodium,Porcine/0.5 NS 500 ML IV SCH (12:45)
--- NOTE | 2023-06-04 17:25 | NUR ---
SHIFT SUMMARY Pt alert, oriented x3; calm and cooperative with care. Speech is slurred and garbled at times, improving t/o shift. Right tongue deviation and right facial weakness noted, notified Dr Boland, new orders for stat head ct stroke. ST into see patient this am, hold pt NPO other than meds crushed with applesauce, plans for modified tomorrow. Pt denies pain, chest pain/pressure, sob, nausea, dizziness and numb/tingling. Tele sinus this am, in and out of afib t/o shift, occasionally hypotensive. Spo2 >90% on ra, breathing even and unlabored. Abd soft nontender, hypoactive bt t/o, bm this am. Up with 1 person assist. Other vss. No other acute changes noted. Will continue to monitor.
[2023-06-04] MEDS ORDERED: Dose Adjust by Pharmacy XX STA (20:52)
[2023-06-04] MEDS ORDERED: Melatonin 1 MG Tablet PO SCH (22:05)
[2023-06-05] VITALS (17 sets, daily range): BP systolic 71–99; BP diastolic 48–66
--- NOTE | 2023-06-05 00:30 | NUR ---
PHYSICIAN COMMUNICATION CONTACTED FLAT MACHINE CUTTER RESIDENT, DR SIEGEL, TO NOTIFY HER THAT THE PATIENT'S BLOOD PRESSURE WAS HYPOTENSIVE AT 76/55 MAP OF 63 AND HAD BEEN SINCE ABOUT MIDNIGHT. INFORMED HER THAT THE PATIENT IS ON AN AMIODARONE DRIP, HEPARIN DRIP, AND NS AT 50. DR SIEGEL SAID SHE WOULD ENTER AN ORDER FOR NS BOLUS.
[2023-06-05] MEDS ORDERED: NS 1,000 ML IV SCH (01:00)
--- NOTE | 2023-06-05 02:22 | NUR ---
PHYSICIAN COMMUNICATION CONTACTED DR SIEGEL TO INFORM HER THAT THE PATIENT HAD RECEIVED THE 1,000 ML BOLUS OF NORMAL SALINE THAT SHE HAD ORDERED AND THAT THE PATIENT'S BLOOD PRESSURE WAS NOW 80/48 WITH A MAP OF 59. THIS RN INFORMED DR SIEGEL THAT THE PATIENT WAS STILL ON AN AMIODARONE DRIP AND ASKED IF IT SHOULD BE HELD THE BOLUS WAS NOT EFFECTIVE FOR THE BLOOD PRESSURE. DR SIEGEL SAID TO PUT THE AMIODARONE ON HOLD AND REASSESS THE BLOOD PRESSURE AGAIN IN 30 MINUTES TO AN HOUR TO SEE IF HIS BLOOD PRESSURE IMPROVES.
--- NOTE | 2023-06-05 03:41 | NUR ---
PHYSICIAN COMMUNICATION CONTACTED DR SIEGEL TO NOTIFY HER THAT THE PATIENT'S MAP HAS IMPROVED TO 66 SINCE STOPPING THE AMIODARONE AND HIS BLOOD PRESSURE WAS 77/58. DR SIEGEL SAID TO CONTINUE TO MONITOR.
[2023-06-05 03:45] LABS: BASOPHILS ABSOLUTE AUTO 0.04 K/mm3 (0.00-0.23); BASOPHILS PERCENT AUTO 1 % (0-2); EOSINOPHILS PERCENT AUTO 3 % (0-6); Hematocrit 28.1 % (37.0-53.0); Hemoglobin 9.5 g/dL (13.5-17.5); IMMATURE GRAN ABSOLUTE AUTO 0.03 K/mm3 (0.00-0.10); IMMATURE GRAN PERCENT AUTO 0 % (0-1); LYMPHOCYTES ABSOLUTE AUTO 1.18 K/mm3 (0.84-5.20); LYMPHOCYTES PERCENT AUTO 16 % (21-46); MONOCYTES ABSOLUTE AUTO 0.46 K/mm3 (0.16-1.47); MONOCYTES PERCENT AUTO 6 % (4-13); Mean Corpuscular HGB 30.3 pg (26.0-34.0); Mean Corpuscular HGB Conc 33.8 g/dL (31.5-36.5); Mean Corpuscular Volume 90 fL (80-100); NEUTROPHILS ABSOLUTE AUTO 5.69 K/mm3 (1.96-9.15); NEUTROPHILS PERCENT AUTO 75 % (41-73); Platelet Count 206 K/mm3 (150-400); RDW Coefficient Variation 13.9 % (11.7-14.2); RDW Standard Deviation 45.4 fL (35.1-46.3); Red Blood Cell Count 3.14 M/mm3 (4.30-5.90)
[2023-06-05 04:09] LABS: Albumin, Blood 2.5 g/dL (3.4-5.0); Albumin/Globulin Ratio 0.7 (0.8-1.8); Bilirubin, Total 0.5 mg/dL (0.1-1.0); Bun/Creatinine Ratio 50.4 (12.0-20.0); Calcium, Blood 8.6 mg/dL (8.5-10.1); Creatinine, Blood 0.68 mg/dL (0.60-1.20); Globulin, Blood 3.8 g/dL (2.2-4.0); Magnesium, Blood 1.7 mg/dL (1.6-2.4); Phosphorus, Blood 3.3 mg/dL (2.5-4.9); Potassium, Blood 3.9 mmol/L (3.5-5.5); Total Protein, Blood 6.3 g/dL (6.4-8.2)
--- NOTE | 2023-06-05 06:32 | NUR ---
SHIFT SUMMARY PATIENT ALERT AND ORIENTED X4. SPEECH IS SLURRED/MUMBLED, CAN BE DIFFICULT TO UNDERSTAND. PATIENT DENIES ANY PAIN OR SHORTNESS OF BREATH. CONTINUES ON ROOM AIR WITH SPO2 >90%. PATIENT'S BLOOD PRESSURE HAS STABILIZED AFTER STOPPING THE AMIODARONE DRIP, SBP CURRENTLY IN THE 80'S WITH MAP >/=65, HEART RATE IN THE 60S AND SINUS RHYTHM ON TELE. WILL CONTINUE TO MONITOR. CALL LIGHT WITHIN REACH.
[2023-06-05] MEDS ORDERED: D5W-1/2NS 1,000 ML IV SCH (07:50)
--- NOTE | 2023-06-05 08:02 | NUR ---
AM NOTE Pt alert, oriented x3; calm and cooperative with care. Pt resting in bed up in room with 1 person assist. Pt denies pain, chest pain/pressure, sob, nausea, dizziness and numb/tingling. Tele sinus, bp soft, discussed with MD at bedside, will continue to monitor, notify if map <60. Spo2 >90% on ra, breathing even and unlabored. Abd soft, nontender, +bt t/o. CBG trending down, pt remains NPO, new order for d51/2ns at 50. No other acute changes. will continue to monitor.
[2023-06-05] MEDS ORDERED: Enoxaparin 80 MG/0.8 ML SYR SC SCH (13:00)
[2023-06-05] MEDS ORDERED: Midodrine 5 MG Tab PO SCH (13:00)
[2023-06-05] MEDS ORDERED: Heparin Sodium,Porcine/0.5 NS 500 ML IV SCH (15:55)
[2023-06-05] MEDS ORDERED: Dose Adjust by Pharmacy XX STA ×2 (15:56→22:46)
--- NOTE | 2023-06-05 18:47 | NUR ---
Shift Summary Pt failed modified swallow eval, reccommended for peg tube. Dr Artis to room to speak with patient and sister. No other acute chagnes noted. Will continue to monitor.
[2023-06-05] MEDS ORDERED: Melatonin 1 MG Tablet PO SCH (21:00)
[2023-06-05] MEDS ORDERED: Amiodarone HCl 200 MG Tab PO SCH (21:00)
[2023-06-06 04:27] VITALS: BP 91/62
[2023-06-06 05:08] LABS: BASOPHILS ABSOLUTE AUTO 0.05 K/mm3 (0.00-0.23); BASOPHILS PERCENT AUTO 1 % (0-2); EOSINOPHILS ABSOLUTE AUTO 0.16 K/mm3 (0.00-0.68); EOSINOPHILS PERCENT AUTO 3 % (0-6); Hematocrit 29.1 % (37.0-53.0); Hemoglobin 9.7 g/dL (13.5-17.5); IMMATURE GRAN ABSOLUTE AUTO 0.04 K/mm3 (0.00-0.10); IMMATURE GRAN PERCENT AUTO 1 % (0-1); LYMPHOCYTES ABSOLUTE AUTO 0.84 K/mm3 (0.84-5.20); LYMPHOCYTES PERCENT AUTO 13 % (21-46); MONOCYTES ABSOLUTE AUTO 0.43 K/mm3 (0.16-1.47); MONOCYTES PERCENT AUTO 7 % (4-13); Mean Corpuscular HGB Conc 33.3 g/dL (31.5-36.5); Mean Corpuscular Volume 90 fL (80-100); Mean Platelet Volume 10.2 fL (9.1-12.4); NEUTROPHILS ABSOLUTE AUTO 4.91 K/mm3 (1.96-9.15); NEUTROPHILS PERCENT AUTO 76 % (41-73); Platelet Count 233 K/mm3 (150-400); RDW Standard Deviation 45.9 fL (35.1-46.3); Red Blood Cell Count 3.23 M/mm3 (4.30-5.90); White Blood Cell Count 6.43 K/mm3 (4.00-11.30)
[2023-06-06 05:43] LABS: Albumin, Blood 2.5 g/dL (3.4-5.0); Albumin/Globulin Ratio 0.7 (0.8-1.8); Bilirubin, Total 0.4 mg/dL (0.1-1.0); Bun/Creatinine Ratio 31.4 (12.0-20.0); Calcium, Blood 8.6 mg/dL (8.5-10.1); Creatinine, Blood 0.54 mg/dL (0.60-1.20); Globulin, Blood 3.7 g/dL (2.2-4.0); Potassium, Blood 3.7 mmol/L (3.5-5.5); Total Protein, Blood 6.2 g/dL (6.4-8.2)
--- NOTE | 2023-06-06 06:20 | NUR ---
SHIFT SUMMARY PATIENT ALERT AND ORIENTED X4, WITH SLURRED/MUMBLED SPEECH. 1 ASSIST GETTING UP TO THE CHAIR. PATIENT HAS BEEN ON ROOM AIR WITH SPO2 HIGH 90'S, DENIES SHORTNESS OF BREATH. VITAL SIGNS STABLE, SINUS RHYTHM 60-70'S ON TELE, DENIES HAVING ANY CHEST PAIN. NO ACUTE ISSUES NOTED OVERNIGHT. WILL CONTINUE TO MONITOR. CALL LIGHT WITHIN REACH.
[2023-06-06 08:33] VITALS: BP 85/53
[2023-06-06 11:52] VITALS: BP 95/68
[2023-06-06] MEDS ORDERED: Clarify Drug Order XX ONE (13:30)
[2023-06-06 15:26] VITALS: BP 101/68
--- NOTE | 2023-06-06 16:15 | NUR ---
Initial palliative care consult: Randal is a 62 year old gentleman who was admitted on 05/30/23 with a NSTEMI. He has a history of DM, HTN, HLD, CVA, cardiomyopathy, GERD, dysphagia. He smokes 3-4 ppd of cigarettes and reports that he drinks about a 6 pack of beer per day for the past 20 years. Randal tells this teletypewriter installer he is done with drinking and smoking. He lives in an RV on some friend's property in [place]. His sister is Dotty Block, she lives in [place]. She is his decision maker. Randal has failed a swallow evaluation twice in the past two days. He stated to this teletypewriter installer "I just want to go home and get back to work." He doesn't seem to grasp how ill he is. Attempted to explain his dysphagia and needing to determine a plan of care. He stated "I just need to go home and get back to work and I'll figure it out." He works doing odd jobs and yardwork. He receives transportation benefits through [facility]. He states he is not interested in going to a rehab facilty. "I want to go home and then maybe I can get some help once I am home." He gave this teletypewriter installer permission to speak with Dotty, his sister and decision maker. Spoke with Dotty by phone. She lives in [place] and reports that she herself has some health challenges. Dotty states that Randal cannot go back to his RV. She states he will not have the care he needs there. She states "Randal would go home and ignore whatever the doctor wants him to do." She veralizes that she wants to do what would be best for her brother but is having trouble making decisions for him. She stated "He is mentally challenged although he has never been diagnosed wit it." She states she spoke with someone yesterday to start the Medicaid process for Randal to be able to get some financial assistance. Discussed code status and plan of care. She requests that Randal remain a full code at this time although she states she would not want him to have to live on machines for a long time. Discussed swallowing difficulty and the PEG tube vs. short term dubhoff. Discussed risks for both. She is agreeable to have a dubhoff placed and to see if working with therapy improves his swallow. Dotty agrees that if Randal refuses the dubhoff or pulls it out that she will not force him to continue. If his swallow doesn't improve she verbalized understanding that the decision between a PEG tube and hospice will need to be made. She verbalized it is overwhelming to make decisions for him. Nursing and Dr. Mancera updated on conversations with pt and his sister Dotty. PC to remain available to assist with advanced care planning and pt and family support prn in the coming days.
--- NOTE | 2023-06-06 18:21 | NUR ---
Shift Summary No acute changes t/o shift. Dobhoff placed after discussion with patient and sister Sophia. Pt agreeable to procedure, currently awaiting chest xray results prior to starting feeding. Other vss. No other acute chagnes noted. Will cotninue to monitor.
[2023-06-06 20:52] VITALS: BP 94/61
[2023-06-06 23:43] VITALS: BP 92/51
[2023-06-07 04:56] VITALS: BP 90/58
[2023-06-07] MEDS ORDERED: Dose Adjust by Pharmacy XX STA (06:11)
--- NOTE | 2023-06-07 06:33 | NUR ---
NOC SHIFT SUMMARY PT ORIENTED X2-4, SLEPT WELL OVERNIGHT. DENIES ANY PAIN OR DISCOMFORT. SMALL BORE NG TUBE PLACED PRIOR TO MY ARRIVAL AND READ BY RESIDENT HUMAIRA. ADVACED AN ADDITIONAL 10CM PER PROVIDER. REPEAT CXR COMPLETED. PER PROVIDER ORDER OK TO USE TF @ 40ML HOUR. CONCERNS REGARDING NO GENTLE RESTART FEED DUE TO PROLONGED NPO STATUS AND NO GLUCERNA 1.5 AVAILABLE. AWAITING DIETARY RECCOMENDATION TODAY, STILL ON D5 1/2 NS CONTINOUS. WILL PASS ON TO DAY RN
[2023-06-07 09:07] VITALS: BP 99/70
--- NOTE | 2023-06-07 09:10 | NUR ---
INITIAL ASSESSMENT PATIENT ALERT AND ORIENTED X 4. PATIENT HAS SLURRED SPEECH WHICH CAN BE DIFFICULT TO UNDERSTAND AT TIMES DUE TO TONGUE DEVIATION. NO DEFICITS IN EITHER SIDE WHEN TESTING STRENGTHS OF ARM AND LEGS. PATIENT IS WEAK BUT ABLE TO MOVE ALL EXTREMITIES. PATIENT DENIES PAIN THIS AM. PATIENT HAS TEMP OF 99.5 DEGREES FAHRENHEIT. RESP WNL. LUNGS CLEAR. PATIENT SATTING 90% AND GREATER ON RA. PATIENT IN SR WITH BBB, HR IN THE 70S. SBP IN THE 90S. PATIENT ON SCHEDULED MIDODRINE. DOBHOFF IN PLACE AT 62 CM. OKAY TO GIVE MEDS AT THIS TIME BUT HOLD STARTING TF FOR NOW PER DR. MCKENNA. STRICT NPO. DATE OF LAST BM ON 06/03. PATIENT USES URINAL INDEPENDENTLY. BRUISE NOTED TO R FEM. SKIN PALE AND COOL. D5 1/2 NS INFUSING AT 50 MLS/ HOUR AND HEPARIN INFUSING AT 19 UNITS/ KG/ HOUR. BED LOW, CALL LIGHT IN REACH. CARE CONTINUES.
[2023-06-07 12:29] VITALS: BP 98/65
--- NOTE | 2023-06-07 12:49 | NUR ---
PATIENT NOW AFEBRILE. HR IN THE 70S. SBP IN THE 90S. PATIENT REMAINS SATTING WELL ON RA. BLOOD SUGAR 123; NO COVERAGE INDICATED. NO COMPLAINTS AT THIS TIME. PATIENT IN CHAIR. CALL LIGHT IN REACH. CARE CONTINUES.
[2023-06-07] MEDS ORDERED: Clarify Drug Order XX ONE (13:00)
[2023-06-07 16:36] VITALS: BP 96/69
--- NOTE | 2023-06-07 16:40 | NUR ---
PATIENT AFEBRILE. HR IN THE 70S. SBP IN THE 90S. PATIENT REMAINS SATTING 90% AND GREATER ON RA. TF INFUSING AT 20 MLS/ HOUR. D5 1/2 NS AT 50 MLS/ HOUR DC'D. NO OTHER ACUTE CHANGES TO NOTE ON AT THIS TIME. NO COMPLAINTS. CARE CONTINUES.
--- NOTE | 2023-06-07 18:32 | NUR ---
SHIFT SUMMARY PATIENT REMAINED ALERT AND ORIENTED X 4. PATIENT HAD NO COMPLAINTS OF PAIN THIS SHIFT. PATIENT HAD TMAX OF 99.5 DEGREES FAHRENHEIT THIS AM BUT HAS BEEN AFEBRILE SINCE. PATIENT SPEECH REMAINS SLURRED. NO OTHER SIGNS OF DEFICIT. PATIENT HAS REMAINED SATTING 90% AND GREATER. PATIENT HAS REMAINED SR WITH BBB, HR IN THE 70S. SBP IN THE 90S. PATIENT REMAINS RECEIVING SCHEDULED MIDODRINE. PIVOT 1.5 STARTED THIS SHIFT AT 20 MLS/ HOUR. TF TO BE INCREASED AT 2230. TF TO BE TURNED OFF AT MIDNIGHT FOR POSSIBLE PEG TUBE PLACEMENT TOMORROW. NO BM THIS SHIFT. PATIENT VOIDED 575 MLS OF URINE THIS SHIFT. NO CHANGES TO SKIN NOTED. PATIENT HAD BED BATH BY LABORATORY MACHINIST. D5 1/2 NS DC'D 2 HOURS AFTER TF STARTED. HEPARIN REMAINS INFUSING AT 19 UNITS/ KG/ HOUR. BLOOD SUGARS 123 AND 119 THIS SHIFT. BED LOW, CALL LIGHT IN REACH. PATIENT HAS NO COMPLAINTS AT THIS TIME. REPORT WILL BE GIVEN TO ASSUMING STITCHER UTILITY RN SHORTLY.
[2023-06-07 20:55] VITALS: BP 88/55
[2023-06-08] VITALS (7 sets, daily range): BP systolic 82–110; BP diastolic 52–76
[2023-06-08 04:21] LABS: BASOPHILS ABSOLUTE AUTO 0.05 K/mm3 (0.00-0.23); BASOPHILS PERCENT AUTO 1 % (0-2); EOSINOPHILS ABSOLUTE AUTO 0.14 K/mm3 (0.00-0.68); EOSINOPHILS PERCENT AUTO 2 % (0-6); Hematocrit 29.1 % (37.0-53.0); Hemoglobin 9.7 g/dL (13.5-17.5); IMMATURE GRAN ABSOLUTE AUTO 0.04 K/mm3 (0.00-0.10); IMMATURE GRAN PERCENT AUTO 1 % (0-1); LYMPHOCYTES PERCENT AUTO 17 % (21-46); MONOCYTES ABSOLUTE AUTO 0.62 K/mm3 (0.16-1.47); MONOCYTES PERCENT AUTO 8 % (4-13); Mean Corpuscular HGB 29.9 pg (26.0-34.0); Mean Corpuscular HGB Conc 33.3 g/dL (31.5-36.5); Mean Corpuscular Volume 90 fL (80-100); Mean Platelet Volume 10.2 fL (9.1-12.4); NEUTROPHILS ABSOLUTE AUTO 5.47 K/mm3 (1.96-9.15); NEUTROPHILS PERCENT AUTO 72 % (41-73); Platelet Count 257 K/mm3 (150-400); RDW Coefficient Variation 14.3 % (11.7-14.2); RDW Standard Deviation 46.5 fL (35.1-46.3); Red Blood Cell Count 3.24 M/mm3 (4.30-5.90); White Blood Cell Count 7.62 K/mm3 (4.00-11.30)
[2023-06-08 04:39] LABS: Albumin, Blood 2.4 g/dL (3.4-5.0); Anion Gap 8 mmol/L (3-11); Blood Urea Nitrogen 13 mg/dL (8-24); CO2, Blood 28 mmol/L (21-32); Calcium, Blood 8.6 mg/dL (8.5-10.1); Chloride, Blood 106 mmol/L (98-108); Creatinine, Blood 0.54 mg/dL (0.60-1.20); Glomerular Filtration Rate 113 (60-); Glucose, Blood 120 mg/dL (70-99); Phosphorus, Blood 2.8 mg/dL (2.5-4.9); Potassium, Blood 3.8 mmol/L (3.5-5.5); Sodium, Blood 138 mmol/L (136-145)
--- NOTE | 2023-06-08 06:18 | NUR ---
SHIFT SUMMERY PT HAS BEEN ALERT AND ORIENTED OVERNIGHT. TUBE FEEDING STOPPED AT MIDNIGHT. HEPARIN GTT INFUSING AT 19U. PT HAS HAD NO COMPLAINTS OF PAIN OR DISCOMFORT THIS SHIFT. VS HAVE BEEN WNL. BP SOFT BUT MAP HAS BEEN 65 OR GREATER. PT HAS BEEN AFEBRILE.
--- NOTE | 2023-06-08 11:37 | NUR ---
AM SUMMARY PT IS A&OX4, AND HAS BEEN MAKING JOKES WITH STAFF ALL MORNING. HIS TF HAS BEEN OFF SINCE 0000, AND HIS HEPARIN WAS OFF SINCE ABOUT 0600 FOR PEG TUBE PLACMENT W/ DR. BLACKBURN. I CALLED DR. BLACKBURN THIS MORNING AND HE WAS IN PROCEDURE, BUT STATED HE WAS GOING TO COME AND EVALUATE THE PT. THE PT IS STILL RECEIVING Q4 FLUSHES OF 30ML TO MAINTAIN A PATENT DOUBHOFF. THE DOUBHOFF REMAINS AT 62 CM AT THE LEFT NARE. THE TUBE IS SECURED WITH TAPE. HIS VITAL SIGNS HAVE REMAINED STABLE. HIS BP WAS SOFT THIS MORNING, BUT THE PT IS RECIEVING MIDODRINE TO HELP STABLIZE IT. HIS SP02 >93% ON RA. ON TELE THE PT HAS BEEN SR/ST 90'S-100'S. THE PT HAD A CHG BATH AND HIS PICC LINE REMAINS PATENT IN ALL LUMENS. THE PT IS USING THE URINAL AND CAN MAKE HIS NEEDS KNOWN. NO ACUTE EVENTS THIS MORNING. WE ARE STILL AWAITING FOR DR. BLACKBURN TO EVALUATE THE PT. SEE NOTES FOR ANY UPDATES.
[2023-06-08] MEDS ORDERED: D5W-1/2NS 1,000 ML IV SCH (14:25)
--- NOTE | 2023-06-08 14:51 | NUR ---
DR. BLACKBURN CAME TO SEE THE PT AT 1440. HE DISCUSSED THE PURPOSE OF A PEG TUBE AND THAT IT IS CONSIDERED TWO WEEKS AFTER EXTUBATION AND HOW IT WILL TAKE PLACE FOR ALL ORAL INTAKE. SURGEONS WAIT THE TWO WEEKS POST EXTUBATION BECAUSE THE PT MAY GET THEIR SWALLOW BACK. ALSO, HE DISCUSSED THE ALTERNATIVE OPTION OF COMFORT CARE W/ BEING ABLE TO DRINK KNOWING THAT IT WILL CAUSE DAMAGE TO THE LUNGS. THE PT'S CONCERN IS THAT HE WANTS TO BE ABLE TO DRINK SODA AND COFFEE. NO DECISION WAS MADE TO GET THE PEG TUBE OR NOT. DR. BLACKBURN SAID HE WILL TALK TO THE HOSPITALIST TEAM. WHEN I ASKED IF WE SHOULD RESSUME TUBE FEEDINGS. HE SAID, "WELL PROBABLY, THE PT IS NOT GET THIS TUBE PLACED TODAY" AND THEN HE WALKED OFF. I WILL DISCUSS TF WITH DR. PATEL FOR BETTER CLARIFICATION WHEN SHE COMES TO SEE THE PT. THE CONVERSATION WAS DISCUSSED WITH CARE MANAGMENT (SHABANA) AND THE CHARGE NURSE (MARCEL). SHABANA CALLED DR. PATEL WITH THE UPDATE AND DR. PATEL SAID SHE WILL COME BACK TO SEE THE PT.
--- NOTE | 2023-06-08 15:16 | NUR ---
DR. MCKENNA STATED TO RESUME TF ORDERED AND D/C D5 WHEN THE TF IS STARTED. SHE STILL PLANS TO COME TALK WITH THE PT ABOUT HIS PLAN.
--- NOTE | 2023-06-08 16:09 | NUR ---
TF RESTARTED AT 1607 AT 20ML/HR W/ Q4 30ML FLUSHES. WE WILL NEED TO INCREASE THE RATE Q8 HRS UNTIL GOAL RATE IS MET. HIS D5 WAS STOPPED PER DR. MCKENNA.
--- NOTE | 2023-06-08 17:08 | NUR ---
THE PT WAS WANTING TO LEAVE AMA. HE STATED HE DOES NOT WANT ANY FEEDING TUBES AND WANTS TO GO HOME. I EXPLAINED THE RISK OF LEAVING AMA AND THAT HE STILL CAN NOT SAFELY SWALLOW SO HE WOULD END UP DAMAGING HIS LUNGS AND BE BACK IN THE HOSPITAL. HE UNDERSTOOD THE RISK AND WAS STILL WANTING TO LEAVE. I CALLED DR. CASTELLANOS AND SHE REPORTED TO DR. MCKENNA. DR. MCKENNA SPOKE TO THE PT AND HE IS AGREEABLE TO STAY OVERNIGHT SO WE CAN POSSIBLY SET UP HOME HOSPICE OR IT WILL GIVE HIM MORE TIME TO THINK ABOUT THE PEG TUBE. OF RIGHT NOW, DR. MCKENNA WOULD LIKE ALL BLOOD THINNERS HELD INCASE THE PT GOES FOR A PROCEDURE TOMORROW.
[2023-06-09] VITALS (10 sets, daily range): BP systolic 77–101; BP diastolic 41–68
[2023-06-09] MEDS ORDERED: NS 500 ML IV ONE (00:50)
--- NOTE | 2023-06-09 04:37 | NUR ---
SHIFT SUMMARY PT HYPOTENSIVE T/O NOC. X1 FLUID BOLUS GIVEN PER ORDERS. SLIGHT IMPROVEMENT IN BP. TUBE FEEDS VIA DOBHOFF INCREASED TO 30CC/HR AND PT TOLERATING WELL. X1 INCONTINENT VOID. ABLE TO REPOSITION SELF IN BED INDEP. DENIES PAIN AND HAS NO COMPLAINTS. ALERT AND ORIENTED X4. USES CALL LIGHT APPROPRIATELY. EAGER TO TALK TO DOCTOR THIS AM ABOUT TREATMENT PLAN.
[2023-06-09 05:34] LABS: BASOPHILS ABSOLUTE AUTO 0.05 K/mm3 (0.00-0.23); BASOPHILS PERCENT AUTO 1 % (0-2); EOSINOPHILS ABSOLUTE AUTO 0.11 K/mm3 (0.00-0.68); EOSINOPHILS PERCENT AUTO 2 % (0-6); Hematocrit 30.9 % (37.0-53.0); Hemoglobin 10.4 g/dL (13.5-17.5); IMMATURE GRAN ABSOLUTE AUTO 0.01 K/mm3 (0.00-0.10); IMMATURE GRAN PERCENT AUTO 0 % (0-1); LYMPHOCYTES ABSOLUTE AUTO 1.17 K/mm3 (0.84-5.20); LYMPHOCYTES PERCENT AUTO 19 % (21-46); MONOCYTES ABSOLUTE AUTO 0.45 K/mm3 (0.16-1.47); MONOCYTES PERCENT AUTO 7 % (4-13); Mean Corpuscular HGB 30.9 pg (26.0-34.0); Mean Corpuscular HGB Conc 33.7 g/dL (31.5-36.5); Mean Corpuscular Volume 92 fL (80-100); Mean Platelet Volume 10.3 fL (9.1-12.4); NEUTROPHILS ABSOLUTE AUTO 4.42 K/mm3 (1.96-9.15); NEUTROPHILS PERCENT AUTO 71 % (41-73); Platelet Count 273 K/mm3 (150-400); RDW Coefficient Variation 14.6 % (11.7-14.2); RDW Standard Deviation 48.2 fL (35.1-46.3); Red Blood Cell Count 3.37 M/mm3 (4.30-5.90); White Blood Cell Count 6.21 K/mm3 (4.00-11.30)
[2023-06-09] MEDS ORDERED: Lansoprazole 15 MG TAB.RAP.DR PT SCH (06:00)
[2023-06-09 06:15] LABS: Bun/Creatinine Ratio 27.6 (12.0-20.0); Creatinine, Blood 0.54 mg/dL (0.60-1.20); Potassium, Blood 3.7 mmol/L (3.5-5.5)
[2023-06-09] MEDS ORDERED: Midodrine 5 MG Tab PO SCH (07:20)
[2023-06-09] MEDS ORDERED: Amiodarone HCl 200 MG Tab PO SCH (09:00)
[2023-06-09] MEDS ORDERED: Thiamine HCl 100 MG Tab PT SCH (09:00)
[2023-06-09] MEDS ORDERED: Folic Acid 1 MG TAB PT SCH (09:00)
[2023-06-09] MEDS ORDERED: Atropine Sulfate 1% Opth Soln 2ML BTL SL PRN (13:25)
[2023-06-09] MEDS ORDERED: Scopolamine Hydrobromide Patch TOP PRN (13:25)
--- NOTE | 2023-06-09 13:31 | NUR ---
GOALS OF CARE PATIENT, KEENAN LIKES TO BE ADDRESSED BY 'AL'. AL IS A/O X3. HE KNOWS WHERE HE IS (HOSPITAL & RM #), THE DATE (WITHOUT LOOKING AT THE BOARD), STATES NAME/, LOCATED FRIENDS PHONE NUMBER IN HIS CELL PHONE. AL CORRECTLY STATED HIS HOME ADDRESS. HE GRADUATED FROM [employer]. THIS PC RN REVIEWED PT'S WISHES TO STOP TUBE FEEDING VIA DOBHOFF. HIS GOAL IS TO EAT, DRINK AND BE OUTSIDE. PT WAS ABLE TO TEACH BACK THE RISKS OF EATING AND DRINKING BY MOUTH. "I KNOW FOOD OR LIQUIDS ARE GOING TO GET IN MY LUNGS.". THIS PC RN DESCRIBED SYMPTOMS/PROBABLE RESULTS OF ASPIRATION PNEUMONIA. AL ALSO VERBALIZED UNDERSTANDING HIS POOR PROGNOSIS AND THE ULTIMATE OUTCOME OF STOPPING SUPPLEMENTAL FEEDINGS (TUBE FEED). NEIGHBOR, ELISHA REPORTS AL HAVING DYSPHAGIA AT BASELINE. CURRENTLY, PT'S SECREATIONS ARE NOT WELL MANAGED. RX INTERVENTION REQUESTED OF PROVIDER. AL IS FEELING DOWN BEING IN THE HOSPITAL SETTING. "I SPEND ALL DAY OUTSIDE. 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 AL STATES, "I WANT TO STAY QUIT." HE WOULD LIKE NICOTINE PATCHES WHEN HE IS D/C HOME. REQUEST RELAYED TO PROVIDER. AL REPEATEDLY STATES, "I WANT TO TAKE ALL THIS OFF AND GO HOME. WHEN CAN I GET OUT OF HERE?", HE IS REACHING FOR HIS DOBHOFF AND IV. NURSING NOTES YESTERDAY INDICATE PT WANTED TO LEAVE AMA. PRIOR TO THIS HOSPITAL STAY HIS PPS WAS 80% AND INDEPENDENT WITH ALL ADL/IADL'S. POOR HYGENE AT BASELINE. CURRENT PPS 50%. NOW USING A WALKER. THIS PC RN SPOKE WITH FRIEND ELISHA DELUCA BY PHONE. ELISHA CONFIRMS, BRETT HAS A 5TH WHEEL TRAILER PARKED 20 FT FROM HIS HOME. ELISHA AND HIS BRENDAN KEEP AN EYE OUT FOR AL ALREADY. ELISHA IS AGREEABLE TO CHECKING IN ON ELISHA A COUPLE OF TIMES A DAY. ELISHA REPORTS, "I HAVE BEEN TRYING TO GET HIM TO MOVE UP BY HIS SISTERS. HE DOESN'T WANT TO GO. I CAN'T MAKE HIM DO ANYTHING HE DOESN'T WANT.". LEFT MESSAGE FOR PT'S SISTER, AN TO RETURN THIS PC RN'S PHONE CALL TO REVIEW GOALS OF CARE. POST COLLABORATION WITH CARE TEAM, DR. CHAUHAN TO CHANGE CODE STATUS TO DNR. WITH ADDITIONAL ORDER FOR ATROPINE AND SCOPALAMINE FOR SECREATION MANAGEMENT. COMPONENT INSPECTOR, AVINASH NOTIFIED OF HOSPICE REQUEST. CARE TEAM UPDATED WITH PT'S REQUEST AND GOALS. PLAN: MAINTAIN CURRENT TREATMENT PLAN UNTIL D/C HOME WITH HOSPICE SUPPORT. PC WILL REMAIN AVAILABLE NEEDED. PHONE NUMBER FOR SARTHAK DELUCA [phone].
--- NOTE | 2023-06-09 19:25 | NUR ---
SHIFT SUMMARY PT DISCUSSED CODE STATUS AND ADVANCE CARE PLANNING TODAY WITH PALLIATIVE CARE AND MD'S, PLAN TO GO HOME ON HOSPICE TOMORROW IF EVERYTHING IS ABLE TO BE PUT IN PLACE FOR HIM, HE HAD EXTENSIVE DISCUSSIONS WITH MULTIPLE PEOPLE REGARDING THIS CHANGE TO HIS CARE PLAN AND WHAT THAT WILL LOOK LIKE GOING HOME. HE WAS TAKEN FOR A WALK BY ONE OF THE MD'S. NO OTHER EVENTS THIS SHIFT, CALL LIGHT IN REACH.
--- NOTE | 2023-06-10 04:04 | NUR ---
SHIFT SUMMARY NO ACUTE CHANGES. PT VERY PLEASANT AND MUCH MORE TALKATIVE THIS SHIFT THAN PREVIOUS NIGHT. PT TOLERATING TUBE FEEDS VIA DOBHOFF. REPOSITIONS SELF IN BED INDEPENDENTLY. INCONTINENT OF URINE AT TIMES, BUT CAN USE THE URINAL INDEPENDENTLY AT TIMES WELL. CHANGING ATTENDS PRN. PT VERBALIZES HOW EAGER HE IS TO DISCHARGE HOME TODAY. USES CALL LIGHT APPROPRIATELY.
[2023-06-10 04:47] VITALS: BP 80/51
[2023-06-10 07:26] VITALS: BP 83/62
--- NOTE | 2023-06-10 08:48 | NUR ---
Phone Call With Sister Delayed Entry from 06/09/2023 This PC RN spoke with Dotty by phone in the afternoon. Recapped conversation with Dotty re: Al's GOC, with primary focus on going home with hospice. Al's wants to go home, eat/drink by mouth and spend time outside. Dotty is reluctantly supportive of Chucho's decesion to forgo possible PEG tube placement and admitting to hospice service. She stated, "I know he doesn't want a feeding tube. Won't he without it?". This PC RN provided education about aspitation risks and the likely mayorga of aspiration pneumonia and sepsis. She verbalized understanding. Dotty has no further questions at this time. This PC RN provided list of homes verbally per her request. does not have access to a fax machine to receive a printed home list. PC to remain available.
--- NOTE | 2023-06-10 10:20 | NUR ---
STOPPED FEEDING AND DC'D DOBHOFF AFTER MONRING MEDS PER DR TEJADA VERBAL ORDER.
[2023-06-10] MEDS ORDERED: NICO21TP TOP (10:40)
[2023-06-10] MEDS ORDERED: Docusate S50 MG/5 ML PO (10:41)
[2023-06-10] MEDS ORDERED: OXAYDO5 M2 PO (10:42)
[2023-06-10] MEDS ORDERED: MELATONIN1 M1 PO (10:43)
[2023-06-10] MEDS ORDERED: TRANSDERM-SCOP1 EA13 TD (10:44)
[2023-06-10] MEDS ORDERED: PANT20 PO (10:45)
--- NOTE | 2023-06-10 11:24 | NUR ---
DISCHARGING PT DRESSED AND WAITING FOR RIDE. REVIEWED DC INSTRUCTIONS W/PT; PT VERBALIZED UNDERSTANDING AND SIGNED DC PAPERWORK. PICC LINE DC'D BY OPAL Powers RN. SHAHZAD DC'D PER VERBAL ORDERS. TELE REMOVED. PT SITTING ON EDGE OF BED, CALL LIGHT IN REACH.
--- NOTE | 2023-06-10 11:45 | NUR ---
DISCHARGED PT LEFT UNIT IN WC W/POSSESSIONS AND DC PAPERWORK IN HAND TO MEET RIDE OUTSIDE.
--- NOTE | 2023-06-10 13:54 | NUR ---
Supportive Visit Met with Al this morning in his room. Pt has been liberated from the Dobhoff and expressed gratitude. Al is excited to go home and be out in the fresh air.
== END 2023-06-10 11:47 | disposition hospice, home (50) | DRG 871 ==
LOC: ER 00:34 → ICUE 02:28 → PCU 02:28 → SURS 02:28 → ICUE 04:22 → PCU 06-04 13:07 → SURS 06-08 17:42
PROVIDERS: Emergency Medicine; Family Medicine; Hospitalist; Internal Medicine Critical Care Medicine; ADMIT Student in an Organized Health Care Education/Training Program
PROC: 5A1945Z Respiratory Ventilation, 24-96 Consecutive Hours (ICD-10-PCS; principal; 2023-05-30)
PROC: 5A09357 Assistance with Respiratory Ventilation, Less than 24 Consecutive Hours, Continuous Positive Airway Pressure (ICD-10-PCS; 2023-05-30)
PROC: 3E033XZ Introduction of Vasopressor into Peripheral Vein, Percutaneous Approach (ICD-10-PCS; 2023-05-30)
PROC: 3E03329 Introduction of Other Anti-infective into Peripheral Vein, Percutaneous Approach (ICD-10-PCS; 2023-05-30)
PROC: 0T9B70Z Drainage of Bladder with Drainage Device, Via Natural or Artificial Opening (ICD-10-PCS; 2023-05-30)
PROC: 0BH17EZ Insertion of Endotracheal Airway into Trachea, Via Natural or Artificial Opening (ICD-10-PCS; 2023-05-30)
PROC: 02HV33Z Insertion of Infusion Device into Superior Vena Cava, Percutaneous Approach (ICD-10-PCS; 2023-05-30)
PROC: 4A033R1 Measurement of Arterial Saturation, Peripheral, Percutaneous Approach (ICD-10-PCS; 2023-05-30)
PROC: 02HV33Z Insertion of Infusion Device into Superior Vena Cava, Percutaneous Approach (ICD-10-PCS; 2023-06-03)
DX: A41.9 Sepsis, unspecified organism (principal); E11.10 Type 2 diabetes mellitus with ketoacidosis without coma; I21.A1 Myocardial infarction type 2; R65.21 Severe sepsis with septic shock; J96.01 Acute respiratory failure with hypoxia; J96.02 Acute respiratory failure with hypercapnia; I50.31 Acute diastolic (congestive) heart failure; R57.0 Cardiogenic shock; J15.5 Pneumonia due to Escherichia coli; J15.69 Pneumonia due to other Gram-negative bacteria; J13 Pneumonia due to Streptococcus pneumoniae; I63.81 Other cerebral infarction due to occlusion or stenosis of small artery; J44.1 Chronic obstructive pulmonary disease with (acute) exacerbation; J44.0 Chronic obstructive pulmonary disease with (acute) lower respiratory infection; I42.9 Cardiomyopathy, unspecified; Z51.5 Encounter for palliative care; Z66 Do not resuscitate; E11.51 Type 2 diabetes mellitus with diabetic peripheral angiopathy without gangrene; I70.202 Unspecified atherosclerosis of native arteries of extremities, left leg; E78.5 Hyperlipidemia, unspecified; I11.0 Hypertensive heart disease with heart failure; T38.3X6A Underdosing of insulin and oral hypoglycemic [antidiabetic] drugs, initial encounter; F17.210 Nicotine dependence, cigarettes, uncomplicated; I34.0 Nonrheumatic mitral (valve) insufficiency; F10.20 Alcohol dependence, uncomplicated; K21.9 Gastro-esophageal reflux disease without esophagitis; E86.0 Dehydration; R13.10 Dysphagia, unspecified; I48.0 Paroxysmal atrial fibrillation; Z60.2 Problems related to living alone; Z79.84 Long term (current) use of oral hypoglycemic drugs; Z79.82 Long term (current) use of aspirin; Z91.148 Patient's other noncompliance with medication regimen for other reason; Z79.4 Long term (current) use of insulin; Z91.138 Patient's unintentional underdosing of medication regimen for other reason; Z78.1 Physical restraint status
CPT/HCPCS: 0202U; 31500; 31720; 36415; 36569; 36600; 51701; 51702; 70450; 71045; 71260; 74230; 80048; 80053; 80069; 80202; 81001; 82803; 82947; 83036; 83605; 83735; 83880; 84100; 84145; 84443; 84484; 85025; 85027; 85520; 85610; 85730; 87040; 87070; 87077; 87086; 87186; 87205; 87633; 92526; 92610; 92611; 93005; 93010; 93306; 93308; 93321; 93356; 93926; 94002; 94003; 94644; 94660; 94664; 94762; 96365-59; 96368; 96375-59; 97110-CQ; 97116; 97116-CQ; 97162; 97530; 99285-25; A9270; C1751; C9113; J0282; J0696; J1644; J1650; J1815; J1940; J2060; J2405; J2543; J2704; J2930; J3010; J3370; J3411; J3475; J3480; J7030; J7042; J7050; J7060; Q9967